=== PATIENT | female | born 1940 | race Caucasian/White ===

== ENCOUNTER 2017-02-05 12:37 | Emergency (ER) | payer MEDICARE, OTHER ==
--- NOTE | 2017-02-05 13:27 | ER Document Report ---
ED General Pain - General Chief Complaint: Back Pain Stated Complaint: BACK,LEG PAIN Time Seen by Provider: 02/05/17 13:00 Notes: 76 yo female c/o low back pain with sciatica x 40-50 years. pain more intense x several weeks. c/o pain to neck, arms, mid/low back and right hip and leg. denies fever, bowel/bladder change. pt seen by orthopedist last week for leg pain. given "a shot in my hip". pt unable to see PCM until next week. pt reports she has been on pain management but "they didn't do anything for me". TRAVEL OUTSIDE OF THE [place] IN LAST 30 DAYS: No - HPI Onset/Duration: Constant, Persistent Quality of pain: Achy, Throbbing Context: Chronic problem, General body pain Associated symptoms: denies: Fever, Chills, Sweating Exacerbated by: Movement Relieved by: Denies Similar symptoms previously: Yes Recently seen / treated by doctor: Yes - Related Data Allergies/Adverse Reactions: aspirin [Aspirin] Adverse Reaction (Verified 04/24/16 09:48) Past Medical History - General Information source: Patient - Social History Smoking Status: Former Smoker Frequency of alcohol use: None Drug Abuse: None Lives with: Alone Family History: Reviewed & Not Pertinent Patient has suicidal ideation: No Patient has homicidal ideation: No - Past Medical History Cardiac Medical History: Reports: Hx Hypertension Denies: Hx Coronary Artery Disease, Hx Heart Attack Pulmonary Medical History: Reports: Hx Pneumonia Denies: Hx Asthma, Hx Bronchitis, Hx COPD Neurological Medical History: Denies: Hx Cerebrovascular Accident, Hx Seizures Endocrine Medical History: Reports: Hx Diabetes Mellitus Type 2 Renal/ Medical History: Denies: Hx Peritoneal Dialysis GI Medical History: Reports: Hx Gastroesophageal Reflux Disease, Hx Ulcer - Bleeding ulcers, Hx Colonoscopy, Hx Endoscopy Musculoskeltal Medical History: Reports Hx Arthritis, Reports Hx Musculoskeletal Deformity, Reports Hx Musculoskeletal Trauma Traumatic Medical History: Reports: Hx Fractures - Multiple fractures Past Surgical History: Reports: Hx Hysterectomy, Hx Orthopedic Surgery - Immunizations Immunizations up to date: No Hx Diphtheria, Pertussis, Tetanus Vaccination: No Review of Systems - Review of Systems Constitutional: No symptoms reported EENT: No symptoms reported Cardiovascular: No symptoms reported Respiratory: No symptoms reported Gastrointestinal: No symptoms reported Genitourinary: No symptoms reported Female Genitourinary: No symptoms reported Musculoskeletal: See HPI Skin: No symptoms reported Hematologic/Lymphatic: No symptoms reported Neurological/Psychological: No symptoms reported Physical Exam - Vital signs Vitals: Temp Pulse Resp BP Pulse Ox 98.1 F 77 16 140/62 H 100 02/05/17 12:47 02/05/17 12:47 02/05/17 12:47 02/05/17 12:47 02/05/17 12:47 Interpretation: Normal - General General appearance: Appears well, Alert - HEENT Head: Normocephalic, Atraumatic Eyes: Normal Pupils: PERRL - Respiratory Respiratory status: No respiratory distress Chest status: Nontender Breath sounds: Normal Chest palpation: Normal - Cardiovascular Rhythm: Regular Heart sounds: Normal auscultation Murmur: No - Abdominal Inspection: Normal Distension: No distension Bowel sounds: Normal Tenderness: Nontender Organomegaly: No organomegaly - Back Back: Tender - + mid thoracic and general lumbar spinal and paraspinal tenderness. right SI tenderness - Extremities General upper extremity: Normal inspection, Nontender, Normal color, Normal ROM , Normal temperature General lower extremity: Normal inspection, Nontender, Normal color, Normal ROM , Normal temperature, Normal weight bearing. No: Clementine's sign - Neurological Neuro grossly intact: Yes Cognition: Normal Orientation: AAOx4 [place] Coma Scale Eye Opening: Spontaneous Raymond Coma Scale Verbal: Oriented [place] Coma Scale Motor: Obeys Commands Raymond Coma Scale Total: 15 Speech: Normal Motor strength normal: LUE, RUE, LLE, RLE Sensory: Normal - Psychological Associated symptoms: Normal affect, Normal mood - Skin Skin Temperature: Warm Skin Moisture: Dry Skin Color: Normal Course - Vital Signs Vital signs: Temp Pulse Resp BP Pulse Ox 98.1 F 77 16 140/62 H 100 02/05/17 12:47 02/05/17 12:47 02/05/17 12:47 02/05/17 12:47 02/05/17 12:47 Discharge - Discharge Clinical Impression: Chronic pain Qualifiers: Chronic pain type: chronic pain syndrome Qualified Code(s): G89.4 - Chronic pain syndrome Condition: Stable Disposition: HOME, SELF-CARE Instructions: Low Back Pain ([facility]), Warm Packs ([facility]), Ultram ([facility]), Muscle Relaxers ([facility]) Additional Instructions: please follow up with your primary care for further pain management Prescriptions: Methocarbamol [Robaxin 500 Mg Tablet] 1,000 mg PO Q6 #30 tablet Tramadol HCl [Ultram 50 mg Tablet] 50 mg PO ASDIR PRN #20 tablet PRN Reason: Referrals: VICKIE SAMUEL DO [Primary Care Provider] - Follow up as needed
[2017-02-05 13:30] VITALS: BP 140/62
== END 2017-02-05 13:30 | disposition home or self-care (01) ==
LOC: ER 12:37
DX: G89.4 Chronic pain syndrome (principal); M54.40 Lumbago with sciatica, unspecified side; M25.551 Pain in right hip; M79.604 Pain in right leg; M54.2 Cervicalgia; M79.603 Pain in arm, unspecified; I10 Essential (primary) hypertension; E11.9 Type 2 diabetes mellitus without complications; Z87.891 Personal history of nicotine dependence
CPT/HCPCS: 99283

== ENCOUNTER 2017-03-30 10:42 | Emergency (ER) | payer MEDICARE, OTHER ==
[2017-03-30 11:44] LABS: ABSOLUTE EOSINOPHILS # (AUTO) 0.1 10^3/uL (0.0-0.6); ABSOLUTE LYMPHOCYTES (AUTO) 1.8 10^3/uL (0.5-4.7); ABSOLUTE MONOCYTES (AUTO) 0.7 10^3/uL (0.1-1.4); ABSOLUTE NEUT (AUTO) 7.7 10^3/uL (1.7-8.2); BASOPHILS % (AUTO) 0.3 % (0-2); EOSINOPHILS % (AUTO) 1.3 % (0-6); HEMATOCRIT 37.3 % (36.0-47.0); HEMOGLOBIN 12.7 g/dL (12.0-15.5); HGB HCT DIFFERENCE 0.8; LYMPHOCYTES % (AUTO) 17.1 % (13-45); MEAN CORPUSCULAR HEMOGLOBIN 33.2 pg (27.0-33.4); MEAN CORPUSCULAR HGB CONC 34.1 g/dL (32.0-36.0); MEAN CORPUSCULAR VOLUME 97 fl (80-97); MONOCYTES % (AUTO) 6.4 % (3-13); RED BLOOD COUNT 3.83 10^6/uL (3.72-5.28); RED CELL DISTRIBUTION WIDTH 13.7 % (11.5-14.0); SEGMENTED NEUTROPHILS % (AUTO) 74.9 % (42-78); WHITE BLOOD COUNT 10.3 10^3/uL (4.0-10.5)
[2017-03-30 11:54] LABS: ALANINE AMINOTRANSFERASE 22 U/L (9-52); ALBUMIN 4.1 g/dL (3.5-5.0); ALKALINE PHOSPHATASE 97 U/L (38-126); ANION GAP 13 (5-19); ASPARTATE AMINO TRANSFERASE 13 U/L (14-36); BILIRUBIN,DIRECT 0.3 mg/dL (0.0-0.4); BILIRUBIN,TOTAL 0.3 mg/dL (0.2-1.3); BLOOD UREA NITROGEN 33 mg/dL (7-20); CALCIUM 9.4 mg/dL (8.4-10.2); CARBON DIOXIDE 24 mmol/L (22-30); CHLORIDE 103 mmol/L (98-107); CREATININE RESULT 1.01 mg/dL (0.52-1.25); GLUCOSE 172 mg/dL (75-110); POTASSIUM 5.1 mmol/L (3.6-5.0); SODIUM 139.8 mmol/L (137-145); TOTAL PROTEIN 6.8 g/dL (6.3-8.2)
--- NOTE | 2017-03-30 11:56 | ER Document Report ---
ED General - General Information source: Patient TRAVEL OUTSIDE OF THE [place] IN LAST 30 DAYS: No - HPI Associated symptoms: Other - see above <ANDREW HERNANDEZ - Last Filed: 03/30/17 11:57> <STEVO GILLESPIE - Last Filed: 03/30/17 13:00> - General Chief Complaint: General Weakness Stated Complaint: WEAKNESS,DIZZINESS Time Seen by Provider: 03/30/17 11:17 Notes: Patient is a 76 year old female who presents to the ED with complaints of coughing, sore throat, congestion, dizziness and weakness in the morning when she wakes up. Patient states once she gets moving her symptoms improve. Patient also complains of generalized body aches secondary to arthritis. Patient states her symptoms are chronic. Patient states she knows she has "something going on with my head or throat". Patient also has a headache. PCP: Dr. Graham Orthopedic: [facility] (ANDREW HERNANDEZ) - Related Data Allergies/Adverse Reactions: aspirin [Aspirin] Adverse Reaction (Verified 04/24/16 09:48) Past Medical History - General Information source: Patient - Social History Smoking Status: Never Smoker Chew tobacco use (# tins/day): No Frequency of alcohol use: None Drug Abuse: None Family History: Reviewed & Not Pertinent - Past Medical History Cardiac Medical History: Reports: Hx Hypertension Denies: Hx Coronary Artery Disease, Hx Heart Attack Pulmonary Medical History: Reports: Hx Pneumonia Denies: Hx Asthma, Hx Bronchitis, Hx COPD Neurological Medical History: Denies: Hx Cerebrovascular Accident, Hx Seizures Endocrine Medical History: Reports: Hx Diabetes Mellitus Type 2 Renal/ Medical History: Denies: Hx Peritoneal Dialysis GI Medical History: Reports: Hx Gastroesophageal Reflux Disease, Hx Ulcer - Bleeding ulcers, Hx Colonoscopy, Hx Endoscopy Musculoskeltal Medical History: Reports Hx Arthritis, Reports Hx Musculoskeletal Deformity, Reports Hx Musculoskeletal Trauma Traumatic Medical History: Reports: Hx Fractures - Multiple fractures Past Surgical History: Reports: Hx Orthopedic Surgery. Denies: Hx Hysterectomy - Immunizations Immunizations up to date: No Hx Diphtheria, Pertussis, Tetanus Vaccination: No <ANDREW HERNANDEZ - Last Filed: 03/30/17 11:57> Review of Systems - Review of Systems Constitutional: Weakness. denies: See HPI EENT: No symptoms reported, Nose congestion, Throat pain Cardiovascular: See HPI, Dizziness Respiratory: See HPI, Cough Gastrointestinal: No symptoms reported Genitourinary: No symptoms reported Female Genitourinary: No symptoms reported Musculoskeletal: No symptoms reported Skin: No symptoms reported Hematologic/Lymphatic: No symptoms reported Neurological/Psychological: See HPI, Weakness <ANDREW HERNANDEZ - Last Filed: 03/30/17 11:57> Physical Exam - General General appearance: Appears well, Alert In distress: None - HEENT Head: Normocephalic, Atraumatic Eyes: Normal Extraocular movements intact: Yes Pupils: PERRL - Respiratory Respiratory status: No respiratory distress Chest status: Tender - chest wall Breath sounds: Normal Chest palpation: Tender - chest wall - Cardiovascular Rhythm: Regular Heart sounds: Normal auscultation Murmur: No - Abdominal Inspection: Obese Distension: No distension Tenderness: Nontender - Back Back: Normal - Extremities General upper extremity: Normal inspection, Normal ROM General lower extremity: Normal ROM, Other - left lateral ankle buldging from previous injury, chronic problems and prior surgery - Neurological Neuro grossly intact: Yes - Psychological Associated symptoms: Normal affect, Normal mood - Skin Skin Temperature: Warm Skin Moisture: Dry Skin Color: Normal <ANDREW HERNANDEZ - Last Filed: 03/30/17 11:57> Course - Laboratory Result Diagrams: 03/30/17 11:17 03/30/17 11:17 <ANDREW HERNANDEZ - Last Filed: 03/30/17 11:57> - Laboratory Result Diagrams: 03/30/17 11:17 03/30/17 11:17 <STEVO GILLESPIE - Last Filed: 03/30/17 13:00> - Re-evaluation Re-evalutation: 03/30/17 12:53 This 76-year-old female patient presents emergency room with multiple chronic complaints. None of her complaints are new, recently worsened, or particularly worrisome. Her lab work including CBC, Chem-12, urinalysis is unremarkable other than evidence of dehydration with an elevated BUN and a potassium 5.1. Her BUN is double what it was 1 year ago, the last time lab work is available for review. She states she has not discussed these problems with her primary care provider. She is encouraged to follow-up with her primary care provider and address all of her concerns. She will be encouraged to increase her fluid intake. (STEVO GILLESPIE) - Vital Signs Vital signs: Temp Pulse Resp BP Pulse Ox 97.7 F 79 16 125/62 95 03/30/17 10:46 03/30/17 10:46 03/30/17 10:46 03/30/17 10:46 03/30/17 10:46 - Laboratory Laboratory results interpreted by me: 03/30/17 03/30/17 11:17 12:23 Potassium 5.1 H BUN 33 H Est GFR (Non-Af Amer) 53 L Glucose 172 H AST 13 L Urine Ascorbic Acid 40 H Discharge <ANDREW HERNANDEZ - Last Filed: 03/30/17 11:57> <STEVO GILLESPIE - Last Filed: 03/30/17 13:00> - Discharge Clinical Impression: Generalized pain, Chronic pain of left ankle, Intermittent dizziness, Weakness , Chest wall pain Condition: Stable Disposition: HOME, SELF-CARE Additional Instructions: Weakness: We did not find a definite cause for your weakness. This may require further medical tests. Weakness can be caused by infection, physical exhaustion , rapid weight loss, dehydration, or medicine side effects. Diseases of the muscles, heart, nerves, and blood vessels can make you weak. Sometimes the problem is simply depression or lack of exercise. You should get plenty of rest. Unless the doctor tells you otherwise, it's usually best to add short periods of regular mild exercise. Eat a nutritious diet with multiple small, low-sugar meals. If symptoms continue, additional medical evaluation will be necessary. Be sure to follow up as instructed. If you become very dizzy, nauseated, or feel like you're going to faint, lie down right away. Wait until the symptoms have passed before you get up again. Stand up slowly. Call the doctor or return if you develop chest pain, abdominal pain, severe headache, irregular heartbeat or very fast pulse, confusion, vision problems, fever, muscular pain, or any other new symptom. Your lab work today is unremarkable except for signs of dehydration. You should drink much more water throughout the day than what you have been doing recently. Follow-up with your primary care provider this week to review and address all of your symptoms related to sinuses, throat, dizziness, weakness, etc. RETURN TO THE EMERGENCY ROOM IF ANY NEW OR WORSENING SYMPTOMS. Referrals: VICKIE GRAHAM DO [Primary Care Provider] - Follow up in 3-5 days Scribe Attestation: 03/30/17 13:00 I personally performed the services described in the documentation, reviewed and edited the documentation which was dictated to the scribe in my presence, and it accurately records my words and actions. (STEVO GILLESPIE) Scribe Documentation - Scribe Written by Gabe:: gabe Estevez, 03/30/2017, 1203 acting as scribe for :: Souleymane <ANDREW HERNANDEZ - Last Filed: 03/30/17 11:57>
[2017-03-30 12:43] LABS: APPEARANCE,URINE CLEAR; BILIRUBIN,URINE NEGATIVE (NEGATIVE); GLUCOSE, URINE NEGATIVE (NEGATIVE); KETONES,URINE NEGATIVE (NEGATIVE); LEUKOCYTE ESTERASE,URINE NEGATIVE (NEGATIVE); NITRITE,URINE NEGATIVE (NEGATIVE); PROTEIN,URINE NEGATIVE (NEGATIVE); URINE SPECIFIC GRAVITY 1.013; UROBILINOGEN,URINE NEGATIVE mg/dL (<2.0)
[2017-03-30 13:17] VITALS: BP 121/54
== END 2017-03-30 13:17 | disposition home or self-care (01) ==
LOC: ER 10:42
DX: R52 Pain, unspecified (principal); M25.572 Pain in left ankle and joints of left foot; G89.29 Other chronic pain; R42 Dizziness and giddiness; R53.1 Weakness; R07.89 Other chest pain; R05 Cough; J02.9 Acute pharyngitis, unspecified; R09.81 Nasal congestion; R51 Headache
CPT/HCPCS: 36415; 80053; 81001; 84443; 85025; 99285

== ENCOUNTER → 2017-06-12 | Day surgery (SDC) | payer MEDICARE, OTHER ==
[~2017-06-12] MED LIST: BUPIVACAINE HCL 0.5 % INJ/PF 30 ML SDV ONE
--- NOTE | 2017-06-12 13:42 | Operative Report ---
KNEE RADIOFREQUENCY left under ultrasound guidance PROCEDURE: 1. Superolateral genicular branch from the vastus lateralis 2. Superomedial genicular branch from the vastus medialis 3. Inferomedial genicular branch from the saphenous nerve DATE OF PROCEDURE: 12 June 2017 ANESTHESIA: Local anesthesia COMPLICATIONS: None reported PROCEDURE IN DETAIL: Hx/PE/meds/allergies/applicable labs reviewed. No changes and no contraindications were found. Full description of the procedure was provided including benefits as well as possible complications including transient increased pain, stomach irritation, mood alteration, transient weakness or parasthesias as well as more serious nerve injury, bleeding, infection or allergic reaction. Informed consent was obtained and documented. The patient was brought to the procedure room and placed on the exam table in a comfortable supine position. The place for needle placement was obtained by manual palpation with ultrasound confirmation. The sterile field was prepared by chloroprep and sterile drapes. Local anesthesia superficial and deep was provided by local infiltration of 2% lidocaine. A 17g 50mm radiofrequency introducer needle with a 4 mm active tip was placed overlying the left knee joint and using fluoroscopic guidance the needle was advanced to a bony endpoint on the superiolateral portion of the femoral condyle of the left knee. A second needle was advanced to a bony endpoint on the superiomedial portion of the femoral condyle. A third needle was then placed over the inferiomedial portion of the tibial condyle until a bony endpoint was met. Attempted aspiration yielded no blood. Transverse ultrasound views showed all the needles at 50% depth of the femur and tibia. Motor stimulation was tested at 2.0 volts with no leg movement. Images were saved in AP and lateral. A mixture consisting of 0.25% bupivacaine was slowly injected. Then a radiofrequency ablation of each of the geniculate nerves were done at 80 degrees Celsius for 2 minutes and 30 seconds each. The needles were withdrawn. The patient tolerated the procedure well. After observation the patient was discharged with instructions and follow up. They were also provided contact information to call regarding any concerning symptoms or questions. IMPRESSION: 1. Successful geniculate knee radiofrequency ablation was performed. 2. The patient was given prescription of home medicines. 3. RTC in 1-2 week(s).
== END ==
LOC: RAD 11:03
PROVIDERS: ATTEND Family Medicine
DX: M17.11 Unilateral primary osteoarthritis, right knee (principal); M17.12 Unilateral primary osteoarthritis, left knee
CPT/HCPCS: 64640

== ENCOUNTER 2017-11-25 10:59 | Emergency (ER) | payer MEDICARE, OTHER ==
--- NOTE | 2017-11-25 11:26 | ER Document Report ---
ED Medical Screen (RME) - General Chief Complaint: Dizziness Stated Complaint: WEAKNESS, DIZZY, BURNING FEELING IN STOMACH Time Seen by Provider: 11/25/17 11:20 Mode of Arrival: Ambulatory Information source: Patient Notes: This is a 77-year-old female with a history of hypertension, diabetes, bleeding ulcers in the past (with transfusions) who presents to the emergency room with generalized weakness and dizziness since Friday patient states she is also experiencing some epigastric burning similar to previous bleeding ulcer in the past. TRAVEL OUTSIDE OF THE [place] IN LAST 30 DAYS: No - Related Data Allergies/Adverse Reactions: aspirin [Aspirin] Adverse Reaction (Verified 11/25/17 11:03) Past Medical History - Social History Frequency of alcohol use: None Drug Abuse: None Family history: Arthritis, CAD, DM, Hyperlipidemia, Hypertension - Past Medical History Cardiac Medical History: Reports: Hx Hypertension Denies: Hx Coronary Artery Disease, Hx Heart Attack Pulmonary Medical History: Reports: Hx Pneumonia Denies: Hx Asthma, Hx Bronchitis, Hx COPD Neurological Medical History: Denies: Hx Cerebrovascular Accident, Hx Seizures Endocrine Medical History: Reports: Hx Diabetes Mellitus Type 2 Renal/ Medical History: Denies: Hx Peritoneal Dialysis GI Medical History: Reports: Hx Gastroesophageal Reflux Disease, Hx Ulcer - Bleeding ulcers, Hx Colonoscopy, Hx Endoscopy. Denies: Hx Pancreatitis Musculoskeltal Medical History: Reports Hx Arthritis, Reports Hx Musculoskeletal Deformity, Reports Hx Musculoskeletal Trauma Traumatic Medical History: Reports: Hx Fractures - Multiple fractures Past Surgical History: Reports: Hx Orthopedic Surgery. Denies: Hx Hysterectomy - Immunizations Immunizations up to date: No Hx Diphtheria, Pertussis, Tetanus Vaccination: No Physical Exam - Vital signs Vitals: Temp Pulse Resp BP Pulse Ox 98.4 F 80 18 139/67 H 97 11/25/17 11:06 11/25/17 11:06 11/25/17 11:06 11/25/17 11:06 11/25/17 11:06 Course - Vital Signs Vital signs: Temp Pulse Resp BP Pulse Ox 98.4 F 80 18 139/67 H 97 11/25/17 11:06 11/25/17 11:06 11/25/17 11:06 11/25/17 11:06 11/25/17 11:06
[2017-11-25 11:53] LABS: ABSOLUTE EOSINOPHILS # (AUTO) 0.1 10^3/uL (0.0-0.6); ABSOLUTE LYMPHOCYTES (AUTO) 1.2 10^3/uL (0.5-4.7); ABSOLUTE MONOCYTES (AUTO) 0.5 10^3/uL (0.1-1.4); ABSOLUTE NEUT (AUTO) 6.9 10^3/uL (1.7-8.2); BASOPHILS % (AUTO) 0.2 % (0-2); EOSINOPHILS % (AUTO) 0.9 % (0-6); HEMATOCRIT 35.8 % (36.0-47.0); LYMPHOCYTES % (AUTO) 13.5 % (13-45); MEAN CORPUSCULAR HEMOGLOBIN 32.6 pg (27.0-33.4); MEAN CORPUSCULAR HGB CONC 33.5 g/dL (32.0-36.0); MEAN CORPUSCULAR VOLUME 98 fl (80-97); MONOCYTES % (AUTO) 5.3 % (3-13); PLATELET COUNT 346 10^3/uL (150-450); RED BLOOD COUNT 3.67 10^6/uL (3.72-5.28); RED CELL DISTRIBUTION WIDTH 13.9 % (11.5-14.0); SEGMENTED NEUTROPHILS % (AUTO) 80.1 % (42-78); TOTAL CELLS COUNTED % (AUTO) 100 %; WHITE BLOOD COUNT 8.6 10^3/uL (4.0-10.5)
[2017-11-25 12:04] LABS: INTERNATIONAL RATION (INR) 0.88; PROTHROMBIN TIME 12.6 SEC (11.4-15.4)
[2017-11-25 12:05] LABS: ALANINE AMINOTRANSFERASE 24 U/L (9-52); ALBUMIN 3.7 g/dL (3.5-5.0); ALKALINE PHOSPHATASE 50 U/L (38-126); ANION GAP 8 (5-19); ASPARTATE AMINO TRANSFERASE 14 U/L (14-36); BILIRUBIN,DIRECT 0.2 mg/dL (0.0-0.4); BILIRUBIN,TOTAL 0.2 mg/dL (0.2-1.3); BLOOD UREA NITROGEN 19 mg/dL (7-20); CALCIUM 9.3 mg/dL (8.4-10.2); CARBON DIOXIDE 28 mmol/L (22-30); CHLORIDE 106 mmol/L (98-107); CREATINE KINASE 26 U/L (30-135); GLUCOSE 107 mg/dL (75-110); POTASSIUM 4.5 mmol/L (3.6-5.0); SODIUM 142.1 mmol/L (137-145); TOTAL PROTEIN 5.9 g/dL (6.3-8.2)
[2017-11-25 12:16] LABS: CREATINE KINASE MB 0.28 ng/mL (<4.55)
[2017-11-25 12:18] LABS: TROPONIN I < 0.012 ng/mL
--- NOTE | 2017-11-25 12:52 | ER Document Report ---
ED General - General Chief Complaint: Dizziness Stated Complaint: WEAKNESS, DIZZY, BURNING FEELING IN STOMACH Time Seen by Provider: 11/25/17 11:20 Mode of Arrival: Ambulatory Information source: Patient Notes: 77-year-old female with past medical history as recorded including gastric ulcers who presents today stating she has discomfort to the epigastric region for "many years". She states for the last 2 days she has had some of this discomfort to this location as well as some lightheadedness and dizziness. She denies any chest pain, nausea, vomiting, shortness of breath, weakness or numbness. She states a mild intermittent frontal headache without any blurry vision or neck discomfort. She denies any dysuria or black or tarry stools. TRAVEL OUTSIDE OF THE [place] IN LAST 30 DAYS: No - HPI Onset: Other - See above Onset/Duration: Intermittent Quality of pain: Achy Severity: Mild Pain Level: 0 Associated symptoms: Other - See above Exacerbated by: Denies Relieved by: Denies Similar symptoms previously: No Recently seen / treated by doctor: No - Related Data Allergies/Adverse Reactions: aspirin [Aspirin] Adverse Reaction (Verified 11/25/17 11:03) Past Medical History - General Information source: Patient - Social History Smoking Status: Never Smoker Cigarette use (# per day): No Chew tobacco use (# tins/day): No Smoking Education Provided: No Frequency of alcohol use: None Drug Abuse: None Family History: Reviewed & Not Pertinent Patient has suicidal ideation: No Patient has homicidal ideation: No - Past Medical History Cardiac Medical History: Reports: Hx Hypertension Denies: Hx Coronary Artery Disease, Hx Heart Attack Pulmonary Medical History: Reports: Hx Pneumonia Denies: Hx Asthma, Hx Bronchitis, Hx COPD Neurological Medical History: Denies: Hx Cerebrovascular Accident, Hx Seizures Endocrine Medical History: Reports: Hx Diabetes Mellitus Type 2 Renal/ Medical History: Denies: Hx Peritoneal Dialysis GI Medical History: Reports: Hx Gastroesophageal Reflux Disease, Hx Ulcer - Bleeding ulcers, Hx Colonoscopy, Hx Endoscopy. Denies: Hx Pancreatitis Musculoskeltal Medical History: Reports Hx Arthritis, Reports Hx Musculoskeletal Deformity, Reports Hx Musculoskeletal Trauma Traumatic Medical History: Reports: Hx Fractures - Multiple fractures Past Surgical History: Reports: Hx Orthopedic Surgery. Denies: Hx Hysterectomy - Immunizations Immunizations up to date: No Hx Diphtheria, Pertussis, Tetanus Vaccination: No Review of Systems - Review of Systems Constitutional: denies: Fever EENT: denies: Eye discharge, Nose discharge Cardiovascular: denies: Chest pain, Palpitations Respiratory: denies: Short of breath Gastrointestinal: denies: Diarrhea, Vomiting Genitourinary: denies: Dysuria Musculoskeletal: denies: Leg swelling Skin: Other - no hives. denies: Rash Neurological/Psychological: Other - no slurred speech -: Yes All other systems reviewed and negative Physical Exam - Vital signs Vitals: Temp Pulse Resp BP Pulse Ox 98.4 F 80 18 139/67 H 97 11/25/17 11:06 11/25/17 11:06 11/25/17 11:06 11/25/17 11:06 11/25/17 11:06 Notes: Reviewed vital signs and nursing note as charted by RN. CONSTITUTIONAL: Alert and oriented and responds appropriately to questions. Well -appearing; well-nourished HEAD: Normocephalic; atraumatic EYES: PERRL ENT: Normal nose; no rhinorrhea; moist mucous membranes; no temporal erythema or tenderness present; pharynx without lesions noted NECK: Supple without meningismus; non-tender; no carotid bruits; no cervical lymphadenopathy, no masses CARD: Regular rate and rhythm; no murmurs RESP: Normal chest excursion without splinting or tachypnea; breath sounds clear and equal bilaterally ABD/GI: Normal bowel sounds; non-distended; soft, non-tender, no abdominal bruits or palpable masses BACK: The back appears normal and is non-tender to palpation, there is no CVA tenderness EXT: Normal ROM in all joints; non-tender to palpation; no edema SKIN: No acute lesions noted NEURO: CN II through XII are intact. Patient has 5 out of 5 bilateral upper and lower extremity strength with sensation intact to light touch with normal cerebellar examination. No nystagmus noted PSYCH: The patient's mood and manner are appropriate. Grooming and personal hygiene are appropriate. Course - Re-evaluation Re-evalutation: 11/25/17 12:51 Given the history and physical examination we will obtain basic labs, abdominal labs, cardiac labs, urinalysis, EKG, and a CT scan of the head. I have low pretest probability currently for ACS. I performed a rectal examination and see no gross blood. Hemoccult has been sent. Orthostatics are pending. EKG shows a heart of 74, normal sinus rhythm, normal axis, no obvious ST elevation or depression, mild T-wave flattening throughout. Old EKG from July 2015 shows no obvious appreciable change. Chest x-ray shows normal heart, normal mediastinum, no fractures, normal lung guy, no pneumothorax. CT scan of the head shows no acute findings. 11/25/17 14:51 Cardiac labs, hemoglobin, Hemoccult results, and chemistry as recorded. Urine analysis as recorded. Urine culture has been sent. Fluids and Rocephin have been given. Orthostatics unremarkable. Patient denies any dizziness at this time. No change in examination. Still no focal neurological deficits. Patient will be discharged home with strict return precautions and follow-up with the primary care physician pending urine culture results. - Vital Signs Vital signs: Temp Pulse Resp BP Pulse Ox 98.4 F 71 12 135/61 H 98 11/25/17 11:06 11/25/17 12:00 11/25/17 13:00 11/25/17 12:52 11/25/17 13:00 - Laboratory Result Diagrams: 11/25/17 11:40 11/25/17 11:40 Laboratory results interpreted by me: 11/25/17 11/25/17 11/25/17 11:40 11:40 12:55 RBC 3.67 L Hct 35.8 L MCV 98 H Seg Neutrophils % 80.1 H Creatine Kinase 26 L Total Protein 5.9 L Ur Leukocyte Esterase SMALL H Urine Ascorbic Acid 40 H Discharge - Discharge Clinical Impression: Dizziness, Epigastric abdominal pain UTI (urinary tract infection) Qualifiers: Urinary tract infection type: site unspecified Hematuria presence: without hematuria Qualified Code(s): N39.0 - Urinary tract infection, site not specified Condition: Good Disposition: HOME, SELF-CARE Additional Instructions: Come back immediately for any return of lightheadedness or dizziness, increased pain or change in location or quality of pain, fevers or vomiting, chest pain, or any other acute problems. Please take the antibiotics as prescribed and please follow-up with the primary care physician for reassessment as we have discussed. Prescriptions: Cephalexin Monohydrate [Keflex 500 mg Capsule] 500 mg PO Q6H 10 Days #40 capsule Referrals: VICKIE SAMUEL DO [Primary Care Provider] - Follow up as needed
--- NOTE | 2017-11-25 12:55 | RADIOLOGY REPORT (SQ) ---
EXAM DESCRIPTION: CHEST SINGLE VIEW COMPLETED DATE/TIME: 11/25/2017 12:25 pm REASON FOR STUDY: weakness, epigastric pain COMPARISON: March 2016 EXAM PARAMETERS: NUMBER OF VIEWS: One view. TECHNIQUE: Single frontal radiographic view of the chest acquired. RADIATION DOSE: NA LIMITATIONS: None. FINDINGS: LUNGS AND PLEURA: No opacities, masses or pneumothorax. No pleural effusion. MEDIASTINUM AND HILAR STRUCTURES: No masses. Contour normal. HEART AND VASCULAR STRUCTURES: Heart normal in size. Normal vasculature. BONES: No acute findings. HARDWARE: None in the chest. OTHER: No other significant finding. IMPRESSION: NO ACUTE RADIOGRAPHIC FINDING IN THE CHEST. TECHNICAL DOCUMENTATION: JOB ID: [id number] [employer]- All Rights Reserved Reading location - IP/workstation name: [email or web address]
[2017-11-25 13:27] LABS: APPEARANCE,URINE SLIGHTLY-CLOUDY; BILIRUBIN,URINE NEGATIVE (NEGATIVE); COLOR,URINE YELLOW; GLUCOSE, URINE NEGATIVE (NEGATIVE); KETONES,URINE NEGATIVE (NEGATIVE); LEUKOCYTE ESTERASE,URINE SMALL (NEGATIVE); NITRITE,URINE NEGATIVE (NEGATIVE); PROTEIN,URINE NEGATIVE (NEGATIVE); UROBILINOGEN,URINE NEGATIVE mg/dL (<2.0)
--- NOTE | 2017-11-25 14:41 | RADIOLOGY REPORT (SQ) ---
EXAM DESCRIPTION: CT HEAD WITHOUT COMPLETED DATE/TIME: 11/25/2017 2:22 pm REASON FOR STUDY: 16, dizziness COMPARISON: March 2009 TECHNIQUE: Axial images acquired through the brain without intravenous contrast. Images reviewed wi th bone, brain and subdural windows. All Images stored on PACS. All CT scanners at this facility use dose modulation, iterative reconstruction, and/or weight based d osing when appropriate to reduce radiation dose to as low as reasonably achievable (ALARA). [facility]: Dose Right [facility]: CareDose [facility]: Dose Right [facility]: Teradose 4D [facility]: Smart [employer] RADIATION DOSE: CT Rad equipment meets quality standard of care and radiation dose reduction techniq ues were employed. CTDIvol: 64.6 mGy. DLP: 1163 mGy-cm. mGy. LIMITATIONS: None. FINDINGS: VENTRICLES: Prominent. CEREBRUM: No masses. No hemorrhage. No midline shift. Areas of low density in the white matter mos t likely due to chronic micro-vascular ischemic change. No evidence for acute infarction. CEREBELLUM: No masses. No hemorrhage. No alteration of density. No evidence for acute infarction. EXTRAAXIAL SPACES: Mild age-related involutional change. No fluid collections. No masses. ORBITS AND GLOBE: No intra- or extraconal masses. Normal contour of globe without masses. CALVARIUM: No fracture. PARANASAL SINUSES: No fluid or mucosal thickening. SOFT TISSUES: No mass or hematoma. OTHER: No other significant finding. IMPRESSION: MILD CHRONIC CHANGES OF ATROPHY AND MICROVASCULAR ISCHEMIA. NO ACUTE PROCESS. EVIDENCE OF ACUTE STROKE: NO. TECHNICAL DOCUMENTATION: JOB ID: [id number] Quality ID # [id number]: Final reports with documentation of one or more dose reduction techniques (e.g., Au tomated exposure control, adjustment of the mA and/or kV according to patient size, use of iterative reconstruction technique) 2010 [employer]- All Rights Reserved Reading location - IP/workstation name: [email or web address]
[2017-11-25] MEDS ORDERED: CEFTRIAXONE RTU 1 GM/D5W 50 ML IV ONE (14:50)
[2017-11-25] MEDS ORDERED: NORMAL SALINE 1000 ML 1,000 ML IV ONE (14:53)
[2017-11-25] MEDS ORDERED: CEFTRIAXONE INJ 1000 MG VIAL IV ONE (15:15)
--- NOTE | 2017-11-25 15:47 | EKG REPORT ---
SEVERITY:- BORDERLINE ECG - SINUS RHYTHM ATRIAL PREMATURE COMPLEX BORDERLINE T ABNORMALITIES, ANT-LAT LEADS : Confirmed by: Estelle Lomas 25-Nov-2017 15:47:08
[2017-11-25 16:20] VITALS: BP 142/64
== END 2017-11-25 16:22 | disposition home or self-care (01) ==
LOC: ER 10:59
DX: N39.0 Urinary tract infection, site not specified (principal); R42 Dizziness and giddiness; R10.13 Epigastric pain; R51 Headache; I10 Essential (primary) hypertension; E11.9 Type 2 diabetes mellitus without complications; Z87.11 Personal history of peptic ulcer disease; Z87.19 Personal history of other diseases of the digestive system
CPT/HCPCS: 93005; 99285; 96361; 96374; 36415; 82553; 82550; 85025; 85610; 82272; 80053; 81001; 84484; 71045; 70450; 93010; J0696; J7030

== ENCOUNTER → 2018-02-04 | Outpatient (CLI) | payer MEDICARE, OTHER ==
--- NOTE | 2018-02-04 16:59 | RADIOLOGY REPORT (SQ) ---
EXAM DESCRIPTION: U/S NON-OB PELVIS W/O DOP; U/S NON-OB PELVIS TV W/O DOP COMPLETED DATE/TIME: 02/04/2018 4:50 pm REASON FOR STUDY: OTHER PELVIC MASS R19.09 OTHER INTRA-ABDOMINAL AND PELVIC SWELLING, MASS AND L COMPARISON: None. TECHNIQUE: Dynamic and static grayscale images acquired of the pelvis via transabdominal and transva ginal approach and recorded on PACS. Additional selected color Doppler and spectral images recorded. LIMITATIONS: None. FINDINGS: UTERUS: Not visualized RIGHT OVARY AND DOPPLER: Ovary not visualized. LEFT OVARY AND DOPPLER: Ovary not visualized. FREE FLUID: None noted. OTHER: No pelvic mass noted. IMPRESSION: No normal structures or abnormal masses identified. TECHNICAL DOCUMENTATION: JOB ID: [id number] [employer]- All Rights Reserved Rev-01/23 Reading location - IP/workstation name: [email or web address]
--- NOTE | 2018-02-04 16:59 | RADIOLOGY REPORT (SQ) ---
EXAM DESCRIPTION: U/S NON-OB PELVIS W/O DOP; U/S NON-OB PELVIS TV W/O DOP COMPLETED DATE/TIME: 02/04/2018 4:50 pm REASON FOR STUDY: OTHER PELVIC MASS R19.09 OTHER INTRA-ABDOMINAL AND PELVIC SWELLING, MASS AND L COMPARISON: None. TECHNIQUE: Dynamic and static grayscale images acquired of the pelvis via transabdominal and transva ginal approach and recorded on PACS. Additional selected color Doppler and spectral images recorded. LIMITATIONS: None. FINDINGS: UTERUS: Not visualized RIGHT OVARY AND DOPPLER: Ovary not visualized. LEFT OVARY AND DOPPLER: Ovary not visualized. FREE FLUID: None noted. OTHER: No pelvic mass noted. IMPRESSION: No normal structures or abnormal masses identified. TECHNICAL DOCUMENTATION: JOB ID: [id number] [employer]- All Rights Reserved Rev-01/23 Reading location - IP/workstation name: [email or web address]
== END ==
LOC: RAD 15:45
PROVIDERS: ATTEND Family Medicine
DX: R19.09 Other intra-abdominal and pelvic swelling, mass and lump (principal)
CPT/HCPCS: 76830; 76856

== ENCOUNTER → 2018-02-23 | Outpatient (CLI) | payer MEDICARE ==
--- NOTE | 2018-02-23 13:33 | RADIOLOGY REPORT (SQ) ---
EXAM DESCRIPTION: NM GASTRIC EMPTYING STUDY COMPLETED DATE/TIME: 02/23/2018 12:37 pm REASON FOR STUDY: NON INTRACTABLE VOMITING W/ NAUSEA, UNSPEC VOMITING TYPE R11.2 NAUSEA WITH VOMITI NG, UNSPECIFIED COMPARISON: None. RADIONUCLIDE AND DOSE: 2.1 millicuries Tc-99m Sulfur Colloid. A wide variety of solid foods have been used. The route of agent administration: Oral. TECHNIQUE: 1 minute serial static imaging performed at time of meal, 1 hour, 2 hours, 3 hours, and 4 hours as needed. Once stomach reaches 90% emptying, the test is complete. Image intensity values plo tted with respect to time with linear regression algorithm. LIMITATIONS: None. FINDINGS: Patient was observed for 4 hours. Immediate post meal serves as baseline. Gastric emptying at 60 minutes was 26%. Gastric emptying at 90 minutes was 39%. Gastric emptying at 120 minutes was 52% Gastric emptying at 180 minutes was 75% Gastric emptying at 240 minutes was 100%. IMPRESSION: Decreased gastric emptying. TECHNICAL DOCUMENTATION: JOB ID: [id number] [employer]- All Rights Reserved Reading location - IP/workstation name: [email or web address]
== END ==
LOC: RAD 07:53
PROVIDERS: ATTEND Family Medicine
DX: R11.2 Nausea with vomiting, unspecified (principal)
CPT/HCPCS: 78264; A9541

== ENCOUNTER → 2018-02-24 | Outpatient (CLI) | payer MEDICARE ==
--- NOTE | 2018-02-24 09:18 | RADIOLOGY REPORT (SQ) ---
EXAM DESCRIPTION: CT ABD/PELVIS COMBO COMPLETED DATE/TIME: 02/24/2018 8:53 am REASON FOR STUDY: PELVIC MASS IN FEMALE R19.00 INTRA-ABD AND PELVIC SWELLING, MASS AND LUMP, UNSP S I COMPARISON: CT abdomen pelvis 04/19/2015, 04/30/2007 TECHNIQUE: CT scan of the abdomen and pelvis performed with and without intravenous contrast, and wi thout oral contrast. Contrasted imaging performed helical scanning technique and dynamic intravenous contrast injection. Images reviewed with lung, soft tissue, and bone windows. Reconstructed coronal a nd sagittal MPR images reviewed. Delayed images for evaluation of the urinary system also acquired. A ll images stored on PACS. All CT scanners at this facility use dose modulation, iterative reconstruction, and/or weight based d osing when appropriate to reduce radiation dose to as low as reasonably achievable (ALARA). [facility]: Dose Right [facility]: CareDose [facility]: Dose Right [facility]: Teradose 4D [facility]: [employer] CONTRAST TYPE AND DOSE: contrast/concentration: Isovue 370.00 mg/ml; Total Contrast Delivered: 93.0 ml; Total Saline Delivered: 71.0 ml RENAL FUNCTION: Creatinine 0.75 RADIATION DOSE: CT Rad equipment meets quality standard of care and radiation dose reduction techniq ues were employed. CTDIvol: 12.1 - 13.5 mGy. DLP: 2003 mGy-cm. . LIMITATIONS: None. FINDINGS: NON-CONTRASTED IMAGING: No urinary stones. In the right pelvic cul-de-sac, a very densely calcified/ossified nodule is present, 3.8 x 3.1 x 2 cm in size. This is unchanged from CT abdomen p jose luis 04/19/2015 and 04/30/2007, and likely represents a pedunculated calcified fibroid or, densely angelina cified/ossified right ovary. POST-CONTRASTED IMAGING: LOWER CHEST: No significant findings. No nodules or infiltrates. LIVER: Normal size. Benign 2 cm diameter hemangioma left lobe liver, unchanged from 2006. No dilate d ducts. SPLEEN: Normal size. No focal lesions. PANCREAS: No masses. No significant calcifications. No adjacent inflammation or peripancreatic fluid collections. Pancreatic duct not dilated. GALLBLADDER: No identified stones by CT criteria. No inflammatory changes to suggest cholecystitis. ADRENAL GLANDS: No significant masses or asymmetry. RIGHT KIDNEY AND URETER: No solid masses. No significant calcifications. No hydronephrosis or hyd roureter. LEFT KIDNEY AND URETER: No solid masses. No significant calcifications. No hydronephrosis or hydr oureter. AORTA AND VESSELS: No aneurysm. No dissection. Renal arteries, SMA, celiac without stenosis. RETROPERITONEUM: No retroperitoneal adenopathy, hemorrhage or masses. BOWEL AND PERITONEAL CAVITY: No masses or inflammatory changes. No free fluid or peritoneal masses. APPENDIX: Normal. PELVIS: Densely calcified/ossified nodule in the right pelvic cul-de-sac, 3.8 x 3.1 x 2 cm in size un changed from 2006. This either represents a calcified pedunculated fibroid or densely calcified righ t ovary (question remote prior torsion). Normal size uterus and left ovary. No free pelvic fluid. No pelvic adenopathy. ABDOMINAL WALL: No masses. No hernias. BONES: No significant or acute findings. OTHER: No other significant finding. IMPRESSION: Calcified probable pedunculated fibroid in the right pelvic cul-de-sac unchanged from 27 03 TECHNICAL DOCUMENTATION: JOB ID: [id number] Quality ID # 436: Final reports with documentation of one or more dose reduction techniques (e.g., Au tomated exposure control, adjustment of the mA and/or kV according to patient size, use of iterative reconstruction technique) 2010 [employer]- All Rights Reserved Reading location - IP/workstation name: [email or web address]
== END ==
LOC: RAD 08:32
PROVIDERS: ATTEND Family Medicine
DX: R19.00 Intra-abdominal and pelvic swelling, mass and lump, unspecified site (principal)
CPT/HCPCS: 74178

== ENCOUNTER 2018-03-31 12:46 | Day surgery (SDC) | payer MEDICARE ==
[~2018-03-31 12:46] MED LIST changes: -BUPIVACAINE HCL 0.5 % INJ/PF 30 ML SDV ONE; +DIPHENHYDRAMINE HCL 50 MG/ML VIAL ONE; +EPINEPHRINE INJ 1 MG/10 ML DISP.SYRIN ONE; +FENTANYL CITRATE INJ/PF 100 MCG/2 ML AMPUL ONE; +FLUMAZENIL INJ 0.5 MG/5 ML VIAL ONE; +GLUCAGON,HUMAN RECOMB 1 MG INJ ONE; +NALOXONE HCL INJ/PF 0.4 MG/1 ML SDV ONE
[2018-03-31] MEDS: MIDAZOLAM 2 MG/2 ML INJ ONE ×2 (13:25→13:29)
--- NOTE | 2018-03-31 13:38 | Operative Report ---
Operative Report DATE OF SURGERY: 03/31/18 Operative Report: The risks benefits and alternatives of the procedure explained to the patient in detail and informed consent is obtained.A GIF Olympus video scope was inserted into the patient's mouth and hypopharynx, the esophagus is identified intubated and insufflated, the scope was then advanced through the esophagus stomach and duodenum, retroflexion maneuver is done, the esophagus stomach and first and second portions of the duodenum examined PREOPERATIVE DIAGNOSIS: Nausea vomiting, gastroparesis POSTOPERATIVE DIAGNOSIS: Gastroparesis. Gastritis status post biopsy. Submucosal injection of Botox OPERATION: EGD with submucosal injection. EGD with biopsy SURGEON: KT CURRAN ANESTHESIA: Moderate Sedation - 3 mg of Versed, 25 mcg of fentanyl. Conscious sedation monitoring time 30 minutes. TISSUE REMOVED OR ALTERED: As noted above. COMPLICATIONS: None. ESTIMATED BLOOD LOSS: None. INTRAOPERATIVE FINDINGS: As noted above. PROCEDURE: Patient tolerated the procedure well. No immediate postprocedure complications are noted. Patient discharged in good condition. Discharge date 03/31/2018. Discharge diet: Regular. Discharge activity: Regular. 2-3 week follow-up to discuss findings. Patient is instructed to call the office or proceed to the emergency room should there be any further problems or questions. We will wait on the pathology.
[2018-03-31] MEDS ORDERED: ONABOTULINUMTOXINA INJ/PF 100 UNIT SDV IJ ONE (13:45)
[2018-03-31 14:47] VITALS: BP 137/66
== END 2018-03-31 14:40 | disposition home or self-care (01) ==
LOC: END 12:46
PROVIDERS: ATTEND Internal Medicine Gastroenterology
DX: K31.84 Gastroparesis (principal); K29.70 Gastritis, unspecified, without bleeding; K44.9 Diaphragmatic hernia without obstruction or gangrene; E11.9 Type 2 diabetes mellitus without complications; I10 Essential (primary) hypertension; D64.9 Anemia, unspecified; M19.91 Primary osteoarthritis, unspecified site; Z79.4 Long term (current) use of insulin
CPT/HCPCS: 43236; 43239; 82962; 88305 ×2; J2250; J3010; J0585; J0171; J1200; J1610; J2310; J3490

== ENCOUNTER → 2018-06-01 | Day surgery (SDC) | payer MEDICARE, OTHER ==
[~2018-06-01] MED LIST changes: +BETAMET ACET/BETAMET NA INJ 6 MG/1 ML INJ PRN; +BUPIVACAINE HCL 0.5 % INJ/PF 30 ML SDV ONE; -DIPHENHYDRAMINE HCL 50 MG/ML VIAL ONE; -EPINEPHRINE INJ 1 MG/10 ML DISP.SYRIN ONE; -FENTANYL CITRATE INJ/PF 100 MCG/2 ML AMPUL ONE; -FLUMAZENIL INJ 0.5 MG/5 ML VIAL ONE; -GLUCAGON,HUMAN RECOMB 1 MG INJ ONE; -NALOXONE HCL INJ/PF 0.4 MG/1 ML SDV ONE
--- NOTE | 2018-06-01 16:51 | RADIOLOGY REPORT (SQ) ---
EXAM DESCRIPTION: INJ W/O EPI/SUBARACH L/S SPINE COMPLETED DATE/TIME: 06/01/2018 2:35 pm REASON FOR STUDY: LUMBAR RADICULOPATHY (M54.16) M54.16 RADICULOPATHY, LUMBAR REGION COMPARISON: CT abdomen pelvis 02/24/2018 FLUOROSCOPY TIME: 1.2 minutes 4 digital radiographic images saved to PACS. TECHNIQUE: Intra-operative images acquired during surgical procedure to evaluate progress. NUMBER OF IMAGES: 4 digital radiographic images LIMITATIONS: None. FINDINGS: Clinical history: Chronic low back pain with bilateral leg pain radiating into the thighs , exacerbated by walking. This is the 1st epidural injection in a potential series of 3 injections, 3 weeks apart Procedure: Risks and benefits of the procedure were discussed with the patient and written informed consent was obtained. Fluoroscopy was used to localize approach for lumbar epidural steroid injection at the right paracent ral L3-4 level. After sterile skin prep with ChloraPrep, local anesthesia with 3 mL of 1% lidocaine, a 22 gauge spina l needle was used to access the lumbar epidural space via right paracentral approach at L3-4. Epidur al needle tip placement was confirmed by injection of 0.5 mL of Omnipaque 300. At this point, 6 mg o f Celestone and 4 mL of dilute bupivicaine was injected into the epidural space without immediate com plication. Patient's preprocedure pain level was 8 out of 10. Patient's postprocedure pain level was 2 out of 10. IMPRESSION: Lumbar epidural steroid injection as above. This is the 1st injection of a potential se irais of 3 injections for low back pain and bilateral leg pain COMMENT: Quality ID 145: Final reports for procedures using fluoroscopy that document radiation exp osure indices, or exposure time and number of fluorographic images (if radiation exposure indices are not available) Please consult full operative report of the attending physician for description of the procedure. TECHNICAL DOCUMENTATION: JOB ID: [id number] [employer]- All Rights Reserved Reading location - IP/workstation name: [email or web address]
== END ==
LOC: RAD 12:36
PROVIDERS: ATTEND Physician Assistant
DX: M54.16 Radiculopathy, lumbar region (principal)
CPT/HCPCS: 62321; J3490; J0702

== ENCOUNTER 2018-06-15 08:32 | Emergency (ER) | payer MEDICARE, OTHER ==
[2018-06-15] MEDS ORDERED: MAG HYDROX/AL HYDROX/SIMETH SUSP 30 ML UDCUP PO ONE (09:52)
[2018-06-15] MEDS ORDERED: LIDOCAINE 2% VISCOUS SOLN 20 ML UDCUP PO ONE (09:52)
[2018-06-15] MEDS ORDERED: METOCLOPRAMIDE HCL ORAL SOLN 10 MG/10 ML UDCUP PO ONE (09:52)
--- NOTE | 2018-06-15 09:52 | ER Document Report ---
ED General - General Chief Complaint: Leg Pain Stated Complaint: LEG PAIN/SWELLING Time Seen by Provider: 06/15/18 08:55 TRAVEL OUTSIDE OF THE [place] IN LAST 30 DAYS: No - HPI Patient complains to provider of: Fatigue Onset: Other - 77-year-old female with a history of diabetes as well as hypertension who presents for evaluation of diffuse myalgias as well as generalized fatigue over last few days after having exert herself moving things around the house more than usual over the last couple of days. She notes that she has not had any fevers, she denies any chills, she has not had dysuria, she has not had any abdominal pain, diarrhea, constipation, chest tightness or chest pain, she does endorse muscle aches in the back some of the shoulders a little lightheadedness. - Related Data Allergies/Adverse Reactions: aspirin [Aspirin] Adverse Reaction (Verified 03/31/18 12:50) Upset stomach, "it messes with my ulcer" Past Medical History - General Information source: Patient - Social History Smoking Status: Never Smoker Chew tobacco use (# tins/day): No Frequency of alcohol use: None Drug Abuse: None Family History: Reviewed & Not Pertinent Patient has suicidal ideation: No Patient has homicidal ideation: No - Past Medical History Cardiac Medical History: Reports: Hx Hypertension Denies: Hx Coronary Artery Disease, Hx Heart Attack Pulmonary Medical History: Reports: Hx Pneumonia Denies: Hx Asthma, Hx Bronchitis, Hx COPD Neurological Medical History: Denies: Hx Cerebrovascular Accident, Hx Seizures Endocrine Medical History: Reports: Hx Diabetes Mellitus Type 2 Renal/ Medical History: Denies: Hx Peritoneal Dialysis GI Medical History: Reports: Hx Gastroesophageal Reflux Disease, Hx Ulcer - Bleeding ulcers, Hx Colonoscopy, Hx Endoscopy. Denies: Hx Pancreatitis Musculoskeletal Medical History: Reports Hx Arthritis - "all over", "mostly in lower back" , Reports Hx Musculoskeletal Deformity, Reports Hx Musculoskeletal Trauma Traumatic Medical History: Reports: Hx Fractures - Multiple fractures Past Surgical History: Reports: Hx Orthopedic Surgery. Denies: Hx Hysterectomy - Immunizations Immunizations up to date: No Hx Diphtheria, Pertussis, Tetanus Vaccination: No Review of Systems - Review of Systems -: Yes All other systems reviewed and negative Physical Exam - Vital signs Vitals: Temp Pulse Resp BP Pulse Ox 98.0 F 85 14 149/70 H 98 06/15/18 08:38 06/15/18 08:38 10 08:38 10 08:38 10 08:38 - General General appearance: Appears well In distress: None - HEENT Head: Normocephalic Eyes: Normal Conjunctiva: Normal Cornea: Normal Extraocular movements intact: Yes Eyelashes: Normal Pupils: PERRL - Respiratory Respiratory status: No respiratory distress Chest status: Nontender Breath sounds: Normal Chest palpation: Normal - Cardiovascular Rhythm: Regular Heart sounds: Normal auscultation Murmur: No - Abdominal Inspection: Normal Distension: No distension Tenderness: Nontender Organomegaly: No organomegaly - Back Back: Normal - Extremities General upper extremity: Normal inspection, Nontender, Normal ROM, Normal strength General lower extremity: Normal inspection, Nontender, Normal ROM, Normal strength - Neurological Neuro grossly intact: Yes Cognition: Normal Orientation: AAOx4 [place] Coma Scale Eye Opening: Spontaneous [place] Coma Scale Verbal: Oriented [place] Coma Scale Motor: Obeys Commands [place] Coma Scale Total: 15 Speech: Normal Cranial nerves: Normal Cerebellar coordination: Normal Motor strength normal: LUE, RUE, LLE, RLE - Psychological Associated symptoms: Normal affect Course - Re-evaluation Re-evalutation: 06/15/18 16:38 77-year-old woman who presents with a vague constellation of complaints most prominently being fatigue and muscle aches after having exerted herself more than usual over the last couple of days. We will plan for broad evaluation including urinalysis chemistry count chest x- ray EKG. We will administer GI cocktail as she has had issues with ulcers and gastritis in the past. Unremarkable chemistry and count. Urinalysis is nondiagnostic. Patient symptoms slightly improved. States that she feels reassured, she like to go home at this time. We will plan for this patient undergo discharge with return precautions and encouraged follow-up with her primary physician's office. Do not believe this represents more serious underlying cause such as but not limited to sepsis, [place], or other intestinal catastrophe. - Vital Signs Vital signs: Temp Pulse Resp BP Pulse Ox 98.0 F 85 10 L 134/57 H 100 06/15/18 08:38 1018 08:38 06/15/18 12:01 06/15/18 12:01 06/15/18 12:01 - Laboratory Result Diagrams: 06/15/18 10:00 06/15/18 10:00 Laboratory results interpreted by me: 06/15/18 06/15/18 06/15/18 10:00 10:00 13:00 RBC 3.62 L Hct 35.9 L MCV 99 H MCH 33.5 H Glucose 68 L Urine Ketones 25 H Discharge - Discharge Clinical Impression: Muscle ache Fatigue Qualifiers: Fatigue type: unspecified Qualified Code(s): R53.83 - Other fatigue Condition: Good Disposition: HOME, SELF-CARE Instructions: Muscle Strain ([facility]), Acetaminophen Additional Instructions: You were seen today in the emergency department for your fatigue. You should continue to monitor yourself for any worsening symptoms Return for any worsening fevers, chills, abdominal pain, inability to eat or drink or keep food down. Referrals: VICKIE SAMUEL, [Primary Care Provider] - Follow up as needed
[2018-06-15 10:28] LABS: ABSOLUTE EOSINOPHILS # (AUTO) 0.1 10^3/uL (0.0-0.6); ABSOLUTE LYMPHOCYTES (AUTO) 1.1 10^3/uL (0.5-4.7); ABSOLUTE MONOCYTES (AUTO) 0.6 10^3/uL (0.1-1.4); ABSOLUTE NEUT (AUTO) 5.9 10^3/uL (1.7-8.2); BASOPHILS % (AUTO) 0.3 % (0-2); EOSINOPHILS % (AUTO) 1.1 % (0-6); HEMATOCRIT 35.9 % (36.0-47.0); HEMOGLOBIN 12.1 g/dL (12.0-15.5); LYMPHOCYTES % (AUTO) 13.8 % (13-45); MEAN CORPUSCULAR HEMOGLOBIN 33.5 pg (27.0-33.4); MEAN CORPUSCULAR HGB CONC 33.8 g/dL (32.0-36.0); MEAN CORPUSCULAR VOLUME 99 fl (80-97); MONOCYTES % (AUTO) 8.1 % (3-13); PLATELET COUNT 428 10^3/uL (150-450); RED BLOOD COUNT 3.62 10^6/uL (3.72-5.28); RED CELL DISTRIBUTION WIDTH 12.6 % (11.5-14.0); SEGMENTED NEUTROPHILS % (AUTO) 76.7 % (42-78); TOTAL CELLS COUNTED % (AUTO) 100 %; WHITE BLOOD COUNT 7.7 10^3/uL (4.0-10.5)
[2018-06-15 10:45] LABS: ALANINE AMINOTRANSFERASE 38 U/L (9-52); ALBUMIN 4.1 g/dL (3.5-5.0); ALKALINE PHOSPHATASE 66 U/L (38-126); ANION GAP 10 (5-19); ASPARTATE AMINO TRANSFERASE 33 U/L (14-36); BILIRUBIN,DIRECT 0.2 mg/dL (0.0-0.4); BILIRUBIN,TOTAL 0.4 mg/dL (0.2-1.3); BLOOD UREA NITROGEN 18 mg/dL (7-20); CALCIUM 9.3 mg/dL (8.4-10.2); CARBON DIOXIDE 27 mmol/L (22-30); CHLORIDE 105 mmol/L (98-107); CREATINE KINASE 37 U/L (30-135); GLUCOSE 68 mg/dL (75-110); LIPASE 34.9 U/L (23-300); POTASSIUM 4.4 mmol/L (3.6-5.0); SODIUM 141.8 mmol/L (137-145); TOTAL PROTEIN 6.9 g/dL (6.3-8.2)
--- NOTE | 2018-06-15 10:55 | RADIOLOGY REPORT (SQ) ---
EXAM DESCRIPTION: CHEST SINGLE VIEW COMPLETED DATE/TIME: 06/15/2018 10:46 am REASON FOR STUDY: weakness and fatigue COMPARISON: AP chest 11/25/2017 EXAM PARAMETERS: NUMBER OF VIEWS: One view. TECHNIQUE: Single frontal radiographic view of the chest acquired. RADIATION DOSE: NA LIMITATIONS: None. FINDINGS: LUNGS AND PLEURA: No opacities, masses or pneumothorax. No pleural effusion. MEDIASTINUM AND HILAR STRUCTURES: No masses. Contour normal. HEART AND VASCULAR STRUCTURES: Heart normal in size. Normal vasculature. BONES: Old healed right lateral 6th rib fracture HARDWARE: None in the chest. OTHER: No other significant finding. IMPRESSION: NO ACUTE RADIOGRAPHIC FINDING IN THE CHEST. TECHNICAL DOCUMENTATION: JOB ID: [id number] [employer]- All Rights Reserved Reading location - IP/workstation name: [facility][email or web address]
[2018-06-15 10:56] LABS: NT PRO BNP 90 pg/mL (<450)
[2018-06-15 10:58] LABS: TROPONIN I < 0.012 ng/mL
[2018-06-15 13:46] LABS: APPEARANCE,URINE CLEAR; BILIRUBIN,URINE NEGATIVE (NEGATIVE); COLOR,URINE STRAW; GLUCOSE, URINE NEGATIVE (NEGATIVE); KETONES,URINE 25 mg/dL (NEGATIVE); LEUKOCYTE ESTERASE,URINE NEGATIVE (NEGATIVE); NITRITE,URINE NEGATIVE (NEGATIVE); PROTEIN,URINE NEGATIVE (NEGATIVE); UROBILINOGEN,URINE NEGATIVE mg/dL (<2.0)
[2018-06-15 13:47] LABS: URINE SPECIFIC GRAVITY 1.007
[2018-06-15 15:06] VITALS: BP 135/63
== END 2018-06-15 15:07 | disposition home or self-care (01) ==
LOC: ER 08:32
DX: M79.18 Myalgia, other site (principal); R53.83 Other fatigue; E11.9 Type 2 diabetes mellitus without complications; I10 Essential (primary) hypertension; R42 Dizziness and giddiness; Z87.19 Personal history of other diseases of the digestive system
CPT/HCPCS: 99284; 36415; 87086; 82550; 83690; 85025; 82272; 80053; 81001; 84484; 83880; 71045; J3490; A9270

== ENCOUNTER 2018-06-17 10:06 | Emergency (ER) | payer MEDICARE, OTHER ==
--- NOTE | 2018-06-17 10:51 | ER Document Report ---
ED Medical Screen (RME) - General Chief Complaint: Dizziness Stated Complaint: DIZZINESS Time Seen by Provider: 06/17/18 10:48 TRAVEL OUTSIDE OF THE [place] IN LAST 30 DAYS: No - HPI Patient complains to provider of: weakness Onset: Other - This 77-year-old female presents for evaluation of generalized weakness and fatigue as well as a sensation of some discomfort radiating from the center of her body. She denies any obvious systemic signs of infection but feels generally unwell. She is difficulty brushing her hair getting up walking and has pain and aching in her muscles. - Related Data Allergies/Adverse Reactions: aspirin [Aspirin] Adverse Reaction (Verified 06/17/18 10:08) Upset stomach, "it messes with my ulcer" Past Medical History - Social History Chew tobacco use (# tins/day): No Frequency of alcohol use: None Drug Abuse: None Family history: Arthritis, CAD, DM, Hyperlipidemia, Hypertension - Past Medical History Cardiac Medical History: Reports: Hx Hypertension Denies: Hx Coronary Artery Disease, Hx Heart Attack Pulmonary Medical History: Reports: Hx Pneumonia Denies: Hx Asthma, Hx Bronchitis, Hx COPD Neurological Medical History: Denies: Hx Cerebrovascular Accident, Hx Seizures Endocrine Medical History: Reports: Hx Diabetes Mellitus Type 2 Renal/ Medical History: Denies: Hx Peritoneal Dialysis GI Medical History: Reports: Hx Gastroesophageal Reflux Disease, Hx Ulcer - Bleeding ulcers, Hx Colonoscopy, Hx Endoscopy. Denies: Hx Pancreatitis Musculoskeltal Medical History: Reports Hx Arthritis - "all over", "mostly in lower back" , Reports Hx Musculoskeletal Deformity, Reports Hx Musculoskeletal Trauma Traumatic Medical History: Reports: Hx Fractures - Multiple fractures Past Surgical History: Reports: Hx Orthopedic Surgery - left wrist. Denies: Hx Hysterectomy - Immunizations Immunizations up to date: No Hx Diphtheria, Pertussis, Tetanus Vaccination: No Influenza Administration Date for 06/2017 - 11/2017 Season: 09/08/17 Physical Exam - Vital signs Vitals: Temp Pulse Resp BP Pulse Ox 98.5 F 75 16 127/63 H 98 06/17/18 10:13 06/17/18 10:13 06/17/18 10:13 06/17/18 10:13 06/17/18 10:13 Course - Re-evaluation Re-evalutation: 06/17/18 10:50 I performed a rapid medical screening examination on this patient, believe she will require some further investigation and evaluation will defer further testing or disposition determination to another provider. This patient represents a broad differential, she may have a myositis, some other underlying problem. We will initiate broad workup including urinalysis chemistries counts CK. - Vital Signs Vital signs: Temp Pulse Resp BP Pulse Ox 98.5 F 75 16 127/63 H 98 06/17/18 10:13 06/17/18 10:13 06/17/18 10:13 06/17/18 10:13 06/17/18 10:13 Doctor's Discharge - Discharge Referrals: VICKIE SAMUEL DO [Primary Care Provider] - Follow up as needed
[2018-06-17 11:48] LABS: APPEARANCE,URINE HAZY; BILIRUBIN,URINE NEGATIVE (NEGATIVE); COLOR,URINE YELLOW; GLUCOSE, URINE NEGATIVE (NEGATIVE); KETONES,URINE NEGATIVE (NEGATIVE); LEUKOCYTE ESTERASE,URINE NEGATIVE (NEGATIVE); NITRITE,URINE NEGATIVE (NEGATIVE); PROTEIN,URINE NEGATIVE (NEGATIVE); UROBILINOGEN,URINE NEGATIVE mg/dL (<2.0)
[2018-06-17 11:49] LABS: URINE SPECIFIC GRAVITY 1.015
--- NOTE | 2018-06-17 12:06 | ER Document Report ---
ED General - General Chief Complaint: Dizziness Stated Complaint: DIZZINESS Time Seen by Provider: 06/17/18 10:48 Notes: Patient is a 77-year-old female that presents to the emergency department for chief complaint of generalized weakness, nausea. Patient states she has been feeling weak in the mornings for the last month. Patient presented with the same symptoms 2 days ago, and had a full evaluation including blood work and chest x-ray, that was essentially unremarkable, and she was discharged home. She states she continues to have the same symptoms, and "wants to know what is going on" she has not follow-up with her primary care physician, in some time, has not been seen as an outpatient in some time. She reports having nausea in the morning but no vomiting and does complain of some epigastric abdominal pain. She denies having any associated fevers, chills, night sweats, chest pain , shortness of breath dysuria or hematuria. She also denies having any headache , numbness, tingling or weakness in one side or the other, denies any facial droop or dysarthria. Past Medical History: Diabetes mellitus, hypertension, hyperlipidemia, peptic ulcer disease, chronic low back pain Past Surgical History: Leg surgery for fracture Social History: Denies current tobacco, alcohol or drug use Family History: Reviewed and noncontributory for presenting illness Allergies: Reviewed, see documented allergy list. REVIEW OF SYSTEMS: Unless otherwise stated in this report the patient's positive and negative responses for review of systems for constitutional, eyes, ENT, cardiovascular, respiratory, gastrointestinal, neurological, genitourinary, musculoskeletal, and integumentary systems and related systems to the presenting problem are either as stated in the HPI or were not pertinent or were negative for the symptoms and/or complaints related to the presenting medical problem. PHYSICAL EXAMINATION: Vital signs reviewed, nursing noted reviewed. GENERAL: Elderly female and in no acute distress. HEAD: Atraumatic, normocephalic. EYES: Eyes appear normal, extraocular movements intact, sclera anicteric, conjunctiva are normal. ENT: nares patent, oropharynx clear without exudates. Moist mucous membranes. NECK: Normal range of motion, supple without lymphadenopathy LUNGS: Breath sounds clear to auscultation bilaterally and equal. No wheezes rales or rhonchi. HEART: Regular rate and rhythm without murmurs ABDOMEN: Soft, mild abdominal discomfort with palpation in the epigastric region , no lower abdominal tenderness with palpation, normoactive bowel sounds. No rebound, guarding, or rigidity. No masses appreciated. EXTREMITIES: Nontender, good range of motion, no pitting or edema. Distal pulses equal bilaterally in all extremities NEUROLOGICAL: No focal neurological deficits. Moves all extremities spontaneously Motor and sensory grossly intact on exam. PSYCH: Normal mood, normal affect. SKIN: Warm, Dry, normal turgor, no rashes or lesions noted on exposed skin TRAVEL OUTSIDE OF THE [place] IN LAST 30 DAYS: No - Related Data Allergies/Adverse Reactions: aspirin [Aspirin] Adverse Reaction (Verified 06/17/18 10:08) Upset stomach, "it messes with my ulcer" Past Medical History - Social History Smoking Status: Never Smoker Chew tobacco use (# tins/day): No Frequency of alcohol use: None Drug Abuse: None Family History: Reviewed & Not Pertinent Patient has suicidal ideation: No Patient has homicidal ideation: No - Past Medical History Cardiac Medical History: Reports: Hx Hypertension Denies: Hx Coronary Artery Disease, Hx Heart Attack Pulmonary Medical History: Reports: Hx Pneumonia Denies: Hx Asthma, Hx Bronchitis, Hx COPD Neurological Medical History: Denies: Hx Cerebrovascular Accident, Hx Seizures Endocrine Medical History: Reports: Hx Diabetes Mellitus Type 2 Renal/ Medical History: Denies: Hx Peritoneal Dialysis GI Medical History: Reports: Hx Gastroesophageal Reflux Disease, Hx Ulcer - Bleeding ulcers, Hx Colonoscopy, Hx Endoscopy. Denies: Hx Pancreatitis Musculoskeletal Medical History: Reports Hx Arthritis - "all over", "mostly in lower back" , Reports Hx Musculoskeletal Deformity, Reports Hx Musculoskeletal Trauma Traumatic Medical History: Reports: Hx Fractures - Multiple fractures Past Surgical History: Reports: Hx Orthopedic Surgery - left wrist. Denies: Hx Hysterectomy - Immunizations Immunizations up to date: No Hx Diphtheria, Pertussis, Tetanus Vaccination: No Physical Exam - Vital signs Vitals: Temp Pulse Resp BP Pulse Ox 98.5 F 75 16 127/63 H 98 06/17/18 10:13 06/17/18 10:13 06/17/18 10:13 06/17/18 10:13 06/17/18 10:13 Course - Re-evaluation Re-evalutation: Patient seen and examined vital signs reviewed. Laboratory data and imaging were ordered as appropriate for the patient's presenting symptoms and complaint, with consideration of any critical or life threatening conditions that may be associated with their obtained history and exam as noted above. Patient was treated with gentle IV fluids Results were reviewed when available and demonstrated unremarkable urinalysis and CBC, her CMP demonstrated a very mild hyponatremia, and very mild hyperkalemia, this was treated with IV fluids with normal saline, do not believe this is a cause of the patient's symptoms The patient was re-evaluated and was still complaining of generalized weakness Evaluation was most consistent with generalized weakness, without specific cause , most likely in this patient's case deconditioning, I did advise her to follow- up with her primary care physician as she may need an echocardiogram as an outpatient, however clinically she does not have acute heart failure, patient was agreeable to this plan of care. There was a recorded pulse ox of 83% 1 minute later after she was recorded at 100%, every time I saw this patient in the emergency department she was 100% on room air, this will be corrected in the chart after discussing with nursing. Results were discussed with the patient at this point, after careful consideration I feel that that patient can be discharged from the emergency department, the patient was educated treatments and reasons to return to the emergency department based on their presumed diagnosis as noted above, they were advised to followup with a primary care physician in 2-3 days. Patient was agreeable to plan of care. *Note is created using voice recognition software and may contain spelling, syntax or grammatical errors. Laboratory 06/17/18 06/17/18 06/17/18 11:12 12:40 12:40 WBC 8.2 RBC 3.74 Hgb 12.4 Hct 37.0 MCV 99 H MCH 33.2 MCHC 33.5 RDW 12.7 Plt Count 386 Seg Neutrophils % 75.6 Lymphocytes % 15.6 Monocytes % 7.8 Eosinophils % 0.7 Basophils % 0.3 Absolute Neutrophils 6.2 Absolute Lymphocytes 1.3 Absolute Monocytes 0.6 Absolute Eosinophils 0.1 Absolute Basophils 0.0 Sodium 136.4 L Potassium 5.4 H Chloride 99 Carbon Dioxide 25 Anion Gap 12 BUN 20 Creatinine 0.81 Est GFR ( Amer) > 60 Est GFR (Non-Af Amer) > 60 Glucose 104 Calcium 9.8 Total Bilirubin 0.6 Direct Bilirubin 0.2 Neonat Total Bilirubin Not Reportable Neonat Direct Bilirubin Not Reportable Neonat Indirect Bili Not Reportable AST 20 ALT 33 Alkaline Phosphatase 70 Creatine Kinase 53 Troponin I Total Protein 6.9 Albumin 4.3 Lipase 54.4 Urine Color YELLOW Urine Appearance HAZY Urine pH 5.0 Ur Specific Ol[place] 1.015 Urine Protein NEGATIVE Urine Glucose (UA) NEGATIVE Urine Ketones NEGATIVE Urine Blood NEGATIVE Urine Nitrite NEGATIVE Urine Bilirubin NEGATIVE Urine Urobilinogen NEGATIVE Ur Leukocyte Esterase NEGATIVE Urine WBC (Auto) 0 Urine RBC (Auto) 1 U Hyaline Cast (Auto) 6 Urine Bacteria (Auto) TRACE Squamous Epi Cells Auto 2 Urine Mucus (Auto) RARE Urine Ascorbic Acid NEGATIVE 06/17/18 12:40 WBC RBC Hgb Hct MCV MCH MCHC RDW Plt Count Seg Neutrophils % Lymphocytes % Monocytes % Eosinophils % Basophils % Absolute Neutrophils Absolute Lymphocytes Absolute Monocytes Absolute Eosinophils Absolute Basophils Sodium Potassium Chloride Carbon Dioxide Anion Gap BUN Creatinine Est GFR ( Amer) Est GFR (Non-Af Amer) Glucose Calcium Total Bilirubin Direct Bilirubin Neonat Total Bilirubin Neonat Direct Bilirubin Neonat Indirect Bili AST ALT Alkaline Phosphatase Creatine Kinase Troponin I < 0.012 Total Protein Albumin Lipase Urine Color Urine Appearance Urine pH Ur Specific Ol[place] Urine Protein Urine Glucose (UA) Urine Ketones Urine Blood Urine Nitrite Urine Bilirubin Urine Urobilinogen Ur Leukocyte Esterase Urine WBC (Auto) Urine RBC (Auto) U Hyaline Cast (Auto) Urine Bacteria (Auto) Squamous Epi Cells Auto Urine Mucus (Auto) Urine Ascorbic Acid - Vital Signs Vital signs: Temp Pulse Resp BP Pulse Ox 98.5 F 64 21 H 141/62 H 83 L 06/17/18 10:13 06/17/18 12:00 06/17/18 14:01 06/17/18 14:00 06/17/18 14:01 - Laboratory Result Diagrams: 06/17/18 12:40 06/17/18 12:40 Laboratory results interpreted by me: 06/17/18 06/17/18 12:40 12:40 MCV 99 H Sodium 136.4 L Potassium 5.4 H Discharge - Discharge Clinical Impression: Weakness, Hyponatremia Condition: Stable Disposition: HOME, SELF-CARE Instructions: Weakness (OM) Additional Instructions: Please return to the emergency department if you have any worsening, or concern of your symptoms. Please return to the emergency department if you develop chest pain, difficulty breathing, severe abdominal pain, or ongoing vomiting. Please follow-up with your primary care physician in 2-3 days and any other recommended physicians. If prescribed, take all medications as directed. If you have any questions or concerns do not hesitate to return the emergency department for evaluation. You may need further testing as an outpatient with your primary care physician, such as an echocardiogram or other blood tests. Referrals: VICKIE SAMUEL, [Primary Care Provider] - Follow up tomorrow
[2018-06-17 12:50] LABS: ABSOLUTE EOSINOPHILS # (AUTO) 0.1 10^3/uL (0.0-0.6); ABSOLUTE LYMPHOCYTES (AUTO) 1.3 10^3/uL (0.5-4.7); ABSOLUTE MONOCYTES (AUTO) 0.6 10^3/uL (0.1-1.4); ABSOLUTE NEUT (AUTO) 6.2 10^3/uL (1.7-8.2); BASOPHILS % (AUTO) 0.3 % (0-2); EOSINOPHILS % (AUTO) 0.7 % (0-6); HEMOGLOBIN 12.4 g/dL (12.0-15.5); LYMPHOCYTES % (AUTO) 15.6 % (13-45); MEAN CORPUSCULAR HEMOGLOBIN 33.2 pg (27.0-33.4); MEAN CORPUSCULAR HGB CONC 33.5 g/dL (32.0-36.0); MEAN CORPUSCULAR VOLUME 99 fl (80-97); MONOCYTES % (AUTO) 7.8 % (3-13); PLATELET COUNT 386 10^3/uL (150-450); RED BLOOD COUNT 3.74 10^6/uL (3.72-5.28); RED CELL DISTRIBUTION WIDTH 12.7 % (11.5-14.0); SEGMENTED NEUTROPHILS % (AUTO) 75.6 % (42-78); TOTAL CELLS COUNTED % (AUTO) 100 %; WHITE BLOOD COUNT 8.2 10^3/uL (4.0-10.5)
[2018-06-17 13:03] LABS: ALANINE AMINOTRANSFERASE 33 U/L (9-52); ALBUMIN 4.3 g/dL (3.5-5.0); ALKALINE PHOSPHATASE 70 U/L (38-126); ANION GAP 12 (5-19); ASPARTATE AMINO TRANSFERASE 20 U/L (14-36); BILIRUBIN,DIRECT 0.2 mg/dL (0.0-0.4); BILIRUBIN,TOTAL 0.6 mg/dL (0.2-1.3); BLOOD UREA NITROGEN 20 mg/dL (7-20); CALCIUM 9.8 mg/dL (8.4-10.2); CARBON DIOXIDE 25 mmol/L (22-30); CHLORIDE 99 mmol/L (98-107); CREATINE KINASE 53 U/L (30-135); GLUCOSE 104 mg/dL (75-110); LIPASE 54.4 U/L (23-300); POTASSIUM 5.4 mmol/L (3.6-5.0); SODIUM 136.4 mmol/L (137-145); TOTAL PROTEIN 6.9 g/dL (6.3-8.2)
[2018-06-17] MEDS ORDERED: NORMAL SALINE 500 ML IV ONE (13:33)
[2018-06-17 14:57] VITALS: BP 141/62
--- NOTE | 2018-06-17 18:14 | EKG REPORT ---
SEVERITY:- BORDERLINE ECG - SINUS RHYTHM ATRIAL PREMATURE COMPLEX BORDERLINE T ABNORMALITIES, ANTERIOR LEADS : Confirmed by: Inocencia Álvarez MD 17-Jun-2018 18:13:51
== END 2018-06-17 15:07 | disposition home or self-care (01) ==
LOC: ER 10:06
DX: E87.1 Hypo-osmolality and hyponatremia (principal); R53.1 Weakness; R42 Dizziness and giddiness; R11.0 Nausea; I10 Essential (primary) hypertension; E11.9 Type 2 diabetes mellitus without complications
CPT/HCPCS: 93005; 99284; 96360; 36415; 82550; 83690; 85025; 80053; 81001; 84484; 93010; J7040

== ENCOUNTER → 2018-06-25 | Day surgery (SDC) | payer MEDICARE, OTHER ==
[~2018-06-25] MED LIST changes: +BETAMET ACET/BETAMET NA INJ 6 MG/1 ML IM PRN; -BETAMET ACET/BETAMET NA INJ 6 MG/1 ML INJ PRN; -BUPIVACAINE HCL 0.5 % INJ/PF 30 ML SDV ONE
--- NOTE | 2018-06-25 15:38 | RADIOLOGY REPORT (SQ) ---
EXAM DESCRIPTION: INJ EPI/SUBARCH/ C/T W/O CATH COMPLETED DATE/TIME: 06/25/2018 2:20 pm REASON FOR STUDY: M54.16 LOW BACK PAIN M54.5 LOW BACK PAIN COMPARISON: 06/01/2018 FLUOROSCOPY TIME: 1.1 minute 3 images saved to PACS. TECHNIQUE: Risks and benefits of the procedure were discussed with the patient, and informed consent was obtained. After fluoroscopic localization, sterile skin prep with Betadine, and local lidocaine for skin and deep tissue anesthesia, a 22-gauge needle was used to acces the dorsal lumbar epidural s pace via paracentral approach at the L5-S1 level. At this point, a small amount of Omnipaque-300 n onionic contrast was injected to confirm needle placement in the epidural space. Subsequently, 6 mg of Celestone and 2.0 ml of dilute Marcaine was injected without complication. LIMITATIONS: None. FINDINGS: None. IMPRESSION: TECHNICALLY SUCCESSFUL LUMBAR EPIDURAL STEROID INJECTION ABOVE. COMMENT: Patient medication list reviewed:Yes- Quality ID# [id number]:Eligible professional attests to docu menting in the medical record they obtained, updated, or reviewed the patient's current medications.. Quality ID 145: Final reports for procedures using fluoroscopy that document radiation exposure miroslava willi, or exposure time and number of fluorographic images (if radiation exposure indices are not avail able) TECHNICAL DOCUMENTATION: JOB ID: [id number] 1979 [employer]- All Rights Reserved Reading location - IP/workstation name: [email or web address]
== END ==
LOC: RAD 12:58
PROVIDERS: ATTEND Physician Assistant
DX: M54.5 Low back pain (principal); M54.16 Radiculopathy, lumbar region
CPT/HCPCS: 62321; J0702

== ENCOUNTER 2018-07-06 11:44 | Day surgery (SDC) | payer MEDICARE, OTHER ==
[~2018-07-06 11:44] MED LIST changes: -BETAMET ACET/BETAMET NA INJ 6 MG/1 ML IM PRN; +PROPOFOL INJ 200 MG/20 ML VIAL IV ONE
--- NOTE | 2018-07-06 13:35 | Operative Report ---
Operative Report DATE OF SURGERY: 07/06/18 Operative Report: The risks, benefits and alternatives of the procedure including the risks of bleeding, perforation requiring surgery are explained to the patient in detail and informed consent is obtained. The patient is taken back to the endoscopy suite and placed in a left, lateral decubital position. Timeout was called. Propofol medication is administered. A rectal examination is done which did not reveal any masses, tears or fissures. An Olympus videoscope was inserted into the patient's rectum. It is carefully advanced all the way to the cecum. The cecum was identified by the usual anatomical landmarks including the ileocecal valve as well as appendiceal office. Attempted intubation of the terminal ileum is unsuccessful there may be a slight stricture. The scope was then sequentially pulled back via the various segments of the colon including the ascending colon, hepatic flexure, transverse colon, splenic flexure, descending colon and finally to the rectosigmoid portions of the colon. Retroflexion maneuver is performed. PREOPERATIVE DIAGNOSIS: Weight loss. 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 colon Otherwise appears to be normal OPERATION: Colonoscopy with biopsy SURGEON: KT CURRAN ANESTHESIA: LMAC TISSUE REMOVED OR ALTERED: As noted above. COMPLICATIONS: None. ESTIMATED BLOOD LOSS: None. INTRAOPERATIVE FINDINGS: As noted above. PROCEDURE: Patient tolerated the procedure well. No immediate postprocedure complications are noted. Patient discharged in good condition. Discharge date 07/06/2018. Discharge diet: Regular. Discharge activity: Regular. 2-3-week follow-up to discuss findings. Patient is instructed call the office or proceed to the emergency room should there be any further problems or questions. Wait on the pathology.
[2018-07-06 13:56] VITALS: BP 109/52
== END 2018-07-06 13:43 | disposition home or self-care (01) ==
LOC: END 11:44
PROVIDERS: ATTEND Internal Medicine Gastroenterology
DX: R19.4 Change in bowel habit (principal); R19.7 Diarrhea, unspecified; R10.84 Generalized abdominal pain; R63.4 Abnormal weight loss; D64.9 Anemia, unspecified; E11.9 Type 2 diabetes mellitus without complications; I10 Essential (primary) hypertension; K21.9 Gastro-esophageal reflux disease without esophagitis; M19.90 Unspecified osteoarthritis, unspecified site; Z68.32 Body mass index [BMI] 32.0-32.9, adult; Z79.899 Other long term (current) drug therapy; Z79.4 Long term (current) use of insulin; Z88.6 Allergy status to analgesic agent
CPT/HCPCS: 45380; 82962; 88305 ×2; J2704; 811

== ENCOUNTER 2019-01-28 11:59 | Day surgery (SDC) | payer MEDICARE, OTHER ==
[~2019-01-28 11:59] MED LIST changes: +DIPHENHYDRAMINE HCL 50 MG/ML VIAL ONE; +EPINEPHRINE INJ 1 MG/10 ML DISP.SYRIN ONE; +FENTANYL CITRATE INJ/PF 100 MCG/2 ML AMPUL ONE; +FLUMAZENIL INJ 0.5 MG/5 ML VIAL ONE; +GLUCAGON,HUMAN RECOMB 1 MG INJ ONE; +NALOXONE HCL INJ/PF 0.4 MG/1 ML SDV ONE; +ONDANSETRON HCL INJ/PF 4 MG/2 ML SDV ONE; -PROPOFOL INJ 200 MG/20 ML VIAL IV ONE
[2019-01-28] MEDS: MIDAZOLAM 2 MG/2 ML INJ ONE ×2 (13:12→13:14)
--- NOTE | 2019-01-28 13:39 | Operative Report ---
Operative Report DATE OF SURGERY: 01/28/19 Operative Report: The risks benefits and alternatives of the procedure explained to the patient in detail and informed consent is obtained.A GIF Olympus video scope was inserted into the patient's mouth and hypopharynx, the esophagus is identified intubated and insufflated ,the scope was then advanced through the esophagus stomach and duodenum, retroflexion maneuver is done, the esophagus stomach and first and second portions of the duodenum examined. PREOPERATIVE DIAGNOSIS: Epigastric pain, melena POSTOPERATIVE DIAGNOSIS: Gastritis status post biopsy for Helicobacter pylori. Hiatal hernia. 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 EGD with biopsy SURGEON: KT CURRAN ANESTHESIA: Moderate Sedation - 4 mg of Versed TISSUE REMOVED OR ALTERED: As noted above COMPLICATIONS: None. ESTIMATED BLOOD LOSS: None. INTRAOPERATIVE FINDINGS: As noted above. PROCEDURE: Patient tolerated the procedure well. No immediate postprocedure complications are noted. Patient discharged in good condition. Discharge date 01/28/2019. Discharge diet: Regular. Discharge activity: Regular. 2 to 3-week follow-up to discuss findings. Patient is instructed to call the office or proceed to the emergency room should there be any further proximal questions. Wait on the pathology.
[2019-01-28 14:18] VITALS: BP 106/70
== END 2019-01-28 14:25 ==
LOC: END 11:59
PROVIDERS: ATTEND Internal Medicine Gastroenterology
DX: K44.9 Diaphragmatic hernia without obstruction or gangrene (principal); K29.50 Unspecified chronic gastritis without bleeding; K22.70 Barrett's esophagus without dysplasia; K92.1 Melena
CPT/HCPCS: 43270; 43239; 82962; 88342 ×2; 88305 ×2; J2250; J0171; J1200; J1610; J2310; J2405; J3010; J3490

== ENCOUNTER → 2019-03-03 | Outpatient (CLI) | payer MEDICARE, OTHER ==
--- NOTE | 2019-03-03 13:42 | RADIOLOGY REPORT (SQ) ---
EXAM DESCRIPTION: U/S ABDOMEN LIMITED W/O DOP COMPLETED DATE/TIME: 03/03/2019 11:22 am REASON FOR STUDY: R10.11 RIGHT UPPER QUADRANT PAIN R10.11 RIGHT UPPER QUADRANT PAIN COMPARISON: CT dated 02/24/2018. TECHNIQUE: Dynamic and static grayscale images acquired of the abdomen and recorded on PACS. Additio nal selected color Doppler and spectral images recorded. LIMITATIONS: None. FINDINGS: PANCREAS: No masses. Visualized pancreatic duct normal caliber. LIVER: No masses. Echotexture normal. LIVER VASCULATURE: Normal directional flow of the main portal vein and hepatic veins. GALLBLADDER: No stones. Normal wall thickness. No pericholecystic fluid. ULTRASOUND-DETECTED CALVILLO'S SIGN: Negative. INTRAHEPATIC DUCTS AND COMMON DUCT: CBD and intrahepatic ducts normal caliber. No filling defects. INFERIOR VENA CAVA: Normal flow. AORTA: No aneurysm. RIGHT KIDNEY: Normal size. Normal echogenicity. 1.1 cm hypoechoic area in the superior pole of the right kidney. No solid or suspicious masses. No hydronephrosis. No calcifications. PERITONEAL AND RIGHT PLEURAL SPACE: No ascites or effusions. OTHER: No other significant findings. IMPRESSION: PROBABLE SMALL CORTICAL CYST IN THE RIGHT KIDNEY. OTHERWISE UNREMARKABLE RIGHT UPPER QU ADRANT ULTRASOUND. TECHNICAL DOCUMENTATION: JOB ID: [id number] [employer]- All Rights Reserved Reading location - IP/workstation name: [email or web address]
== END ==
LOC: SP 08:34
PROVIDERS: ATTEND Internal Medicine Gastroenterology
DX: R10.11 Right upper quadrant pain (principal)
CPT/HCPCS: 76705

== ENCOUNTER → 2019-03-05 | Outpatient (CLI) | payer MEDICARE ==
--- NOTE | 2019-03-05 10:43 | RADIOLOGY REPORT (SQ) ---
EXAM DESCRIPTION: NM HIDA SCAN WITH CCK COMPLETED DATE/TIME: 03/05/2019 10:30 am REASON FOR STUDY: RUQ PAIN (R10.11) R10.11 RIGHT UPPER QUADRANT PAIN COMPARISON: None. RADIONUCLIDE AND DOSE: DOSAGE RADIONUCLIDE: 5.47 millicuries Tc99m Mebrofenin. DOSAGE CCK: 1.6 micrograms. DOSAGE MORPHINE: Not required. The route of agent administration: Intravenous TECHNIQUE: Serial imaging right upper quadrant up to 60 minutes following injection of radionuclide. CCK injected after gallbladder visualized. LIMITATIONS: None. FINDINGS: LIVER: Normal visualization without areas of photopenia. INTRAHEPATIC BILE DUCTS: Normal size and no delay in visualization. COMMON BILE DUCT: Normal without dilatation. GALLBLADDER: Normal visualization. Calculated ejection fraction of 10%. Normal range is greater th an 35%. PHYSICAL RESPONSE: Patients presenting complaint were reproduced. OTHER: No other significant finding. IMPRESSION: 1. ABNORMAL STUDY. The GALLBLADDER EJECTION FRACTION is 10% (normal range is greater omar n 35%). EVIDENCE FOR BILIARY DYSKINESIS. 2. Patient's symptoms were reproduced following CCK administration. TECHNICAL DOCUMENTATION: JOB ID: [id number] [employer]- All Rights Reserved Reading location - IP/workstation name: [email or web address]
== END ==
LOC: RAD 07:11
PROVIDERS: ATTEND Internal Medicine Gastroenterology
DX: R10.11 Right upper quadrant pain (principal)
CPT/HCPCS: 78227; J2805; A9537; Q9969

== ENCOUNTER → 2019-06-11 | Outpatient (CLI) | payer MEDICARE, OTHER ==
--- NOTE | 2019-06-11 14:38 | RADIOLOGY REPORT (SQ) ---
EXAM DESCRIPTION: CT CERVICAL SPINE WITHOUT COMPLETED DATE/TIME: 06/11/2019 2:24 pm REASON FOR STUDY: M54.12 RADICULOPATHY, CERVICAL REGION M54.16 RADICULOPATHY, LUMBAR REGION M54.12 RADICULOPATHY, CERVICAL REGION COMPARISON: None. TECHNIQUE: Axial images acquired through the cervical spine without intravenous contrast. Images re viewed with lung, soft tissue and bone windows. Reconstructed coronal and sagittal MPR images review ed. Images stored on PACS. All CT scanners at this facility use dose modulation, iterative reconstruction, and/or weight based d osing when appropriate to reduce radiation dose to as low as reasonably achievable (ALARA). [facility]: Dose Right [facility]: CareDose [facility]: Dose Right [facility]: Teradose 4D [facility]: [employer] RADIATION DOSE: CT Rad equipment meets quality standard of care and radiation dose reduction techniq ues were employed. CTDIvol: 19.8 mGy. DLP: 463 mGy-cm. mGy. LIMITATIONS: None. FINDINGS: ALIGNMENT: Anatomic. MINERALIZATION: Normal. VERTEBRAL BODIES: No fractures or dislocation. DISCS: Disc spaces are narrowed from C5-T1 with marginal osteophytes. There is mild right foraminal narrowing all at C3-4 secondary to uncovertebral osteophytes and facet changes. There is left forami nal narrowing at C7-T1 secondary to uncovertebral osteophytes. FACETS, LATERAL MASSES, POSTERIOR ELEMENTS: Hypertrophic facet changes seen bilaterally. HARDWARE: None in the spine. VISUALIZED RIBS: No fractures. LUNG APICES AND SOFT TISSUES: No significant or acute findings. OTHER: No other significant finding. IMPRESSION: Degenerative disc disease, spondylosis, and facet arthropathy. There is mild right fora nidhi narrowing secondary to uncovertebral osteophytes and facet hypertrophy at C3-4. There is left foraminal narrowing at C7-T1 secondary to uncovertebral osteophytes. TECHNICAL DOCUMENTATION: JOB ID: [id number] Quality ID # [id number]: Final reports with documentation of one or more dose reduction techniques (e.g., Au tomated exposure control, adjustment of the mA and/or kV according to patient size, use of iterative reconstruction technique) 2010 [employer]- All Rights Reserved Reading location - IP/workstation name: [email or web address]
--- NOTE | 2019-06-11 14:39 | RADIOLOGY REPORT (SQ) ---
EXAM DESCRIPTION: CT LUMBAR SPINE WITHOUT COMPLETED DATE/TIME: 06/11/2019 2:24 pm REASON FOR STUDY: M54.16 RADICULOPATHY, LUMBAR REGION M54.16 RADICULOPATHY, LUMBAR REGION M54.12 R ADICULOPATHY, CERVICAL REGION COMPARISON: 02/23/2019 TECHNIQUE: Axial images acquired through the lumbar spine without intravenous contrast. Images revi ewed with lung, soft tissue and bone windows. Reconstructed coronal and sagittal MPR images reviewed . All images stored on PACS. All CT scanners at this facility use dose modulation, iterative reconstruction, and/or weight based d osing when appropriate to reduce radiation dose to as low as reasonably achievable (ALARA). [facility]: Dose Right [facility]: CareDose [facility]: Dose Right [facility]: Teradose 4D [facility]: [employer] RADIATION DOSE: CT Rad equipment meets quality standard of care and radiation dose reduction techniq ues were employed. CTDIvol: 16.4 mGy. DLP: 466 mGy-cm. mGy. LIMITATIONS: None. FINDINGS: SEGMENTATION: Normal. No transitional anatomy. ALIGNMENT: Mild straightening of the normal lumbar lordosis. Grade 1 anterolisthesis of L4 on L5 wit h associated grade 1 retrolisthesis of L3 on L4, stable. VERTEBRAL BODIES: No evidence of acute fracture. Multilevel endplate change. L3 Schmorl's nodes vira ng the superior and inferior endplates, similar to prior. DISCS: Multilevel disc height loss throughout the lumbar spine. Disc vacuum phenomenon at L 3 4, T12 -L1 and L1-L2. Multilevel small posterior disc bulges with mild canal stenosis, evaluation limited w ithout intrathecal contrast. PEDICLES, TRANSVERSE PROCESSES: No fractures. No dislocation. No acute findings. FACETS, POSTERIOR ELEMENTS: Multilevel facet arthropathy greatest at L3-S1. No high-grade osseous ne ural foraminal narrowing. HARDWARE: None in the spine. VISUALIZED RIBS: No fractures. SOFT TISSUES: Aortic atherosclerosis. OTHER: No other significant finding. IMPRESSION: 1. No evidence of acute bony abnormality of the lumbar spine. 2. Multilevel degenerative changes of the thoracolumbar spine as detailed above. No high-grade osse ous spinal canal or neural foraminal narrowing although evaluation limited without intrathecal contra st. TECHNICAL DOCUMENTATION: JOB ID: [id number] Quality ID # [id number]: Final reports with documentation of one or more dose reduction techniques (e.g., Au tomated exposure control, adjustment of the mA and/or kV according to patient size, use of iterative reconstruction technique) 2010 [employer]- All Rights Reserved Reading location - IP/workstation name: [email or web address]
== END ==
LOC: RAD 13:24
PROVIDERS: ATTEND Family Medicine Geriatric Medicine
DX: M51.15 Intervertebral disc disorders with radiculopathy, thoracolumbar region (principal); M50.13 Cervical disc disorder with radiculopathy, cervicothoracic region
CPT/HCPCS: 72125; 72131

== ENCOUNTER → 2019-06-14 | Outpatient (CLI) | payer MEDICARE, OTHER ==
[2019-06-14 10:37] LABS: ABSOLUTE EOSINOPHILS # (AUTO) 0.1 10^3/uL (0.0-0.6); ABSOLUTE LYMPHOCYTES (AUTO) 1.3 10^3/uL (0.5-4.7); ABSOLUTE MONOCYTES (AUTO) 0.5 10^3/uL (0.1-1.4); ABSOLUTE NEUT (AUTO) 5.2 10^3/uL (1.7-8.2); BASOPHILS % (AUTO) 0.3 % (0-2); EOSINOPHILS % (AUTO) 1.5 % (0-6); HEMATOCRIT 36.5 % (36.0-47.0); HEMOGLOBIN 12.2 g/dL (12.0-15.5); LYMPHOCYTES % (AUTO) 18.8 % (13-45); MEAN CORPUSCULAR HEMOGLOBIN 32.6 pg (27.0-33.4); MEAN CORPUSCULAR HGB CONC 33.4 g/dL (32.0-36.0); MEAN CORPUSCULAR VOLUME 98 fl (80-97); MONOCYTES % (AUTO) 6.5 % (3-13); PLATELET COUNT 350 10^3/uL (150-450); RED BLOOD COUNT 3.74 10^6/uL (3.72-5.28); RED CELL DISTRIBUTION WIDTH 13.1 % (11.5-14.0); SEGMENTED NEUTROPHILS % (AUTO) 72.9 % (42-78); TOTAL CELLS COUNTED % (AUTO) 100 %; WHITE BLOOD COUNT 7.1 10^3/uL (4.0-10.5)
[2019-06-14 11:01] LABS: ALBUMIN 3.9 g/dL (3.5-5.0); ALKALINE PHOSPHATASE 69 U/L (38-126); ANION GAP 7 (5-19); ASPARTATE AMINO TRANSFERASE 17 U/L (14-36); BILIRUBIN,DIRECT 0.1 mg/dL (0.0-0.4); BILIRUBIN,TOTAL 0.2 mg/dL (0.2-1.3); BLOOD UREA NITROGEN 18 mg/dL (7-20); CALCIUM 9.6 mg/dL (8.4-10.2); CARBON DIOXIDE 30 mmol/L (22-30); CHLORIDE 103 mmol/L (98-107); POTASSIUM 4.8 mmol/L (3.6-5.0); TOTAL PROTEIN 6.6 g/dL (6.3-8.2); TRIGLYCERIDES 119 mg/dL (<150)
[2019-06-14 11:13] LABS: DIRECT LDL 85 mg/dL (<100)
[2019-06-14 11:24] LABS: GLUCOSE 63 mg/dL (75-110)
[2019-06-15 13:37] LABS: ANTICHROMATIN AB <0.2 AI (0.0-0.9); CENTROMERE B AB <0.2 AI (0.0-0.9); JO-1 ANTIBODY (ANACOMP) <0.2 AI (0.0-0.9); SJOGREN'S ANTI-SS-B AB <0.2 AI (0.0-0.9); SJOGREN'S SS-A ANTIBODY <0.2 AI (0.0-0.9)
[2019-06-15 13:51] LABS: DNA DOUBLE STRAND ANTIBODY ANA <1 IU/mL (0-9)
[2019-06-15 14:37] LABS: CREATININE URINE 124.1 mg/dL (Not Estab.); MICROALBUMIN URINE 13.9 ug/mL (Not Estab.)
== END ==
LOC: OD 09:44
PROVIDERS: ATTEND Family Medicine Geriatric Medicine
DX: I10 Essential (primary) hypertension (principal); E11.319 Type 2 diabetes mellitus with unspecified diabetic retinopathy without macular edema; K21.0 Gastro-esophageal reflux disease with esophagitis; E66.9 Obesity, unspecified; M54.16 Radiculopathy, lumbar region; M54.5 Low back pain; M54.12 Radiculopathy, cervical region; M15.9 Polyosteoarthritis, unspecified; G89.4 Chronic pain syndrome; Z79.899 Other long term (current) drug therapy; Z68.31 Body mass index [BMI] 31.0-31.9, adult
CPT/HCPCS: 36415; 80053; 80061; 82043; 82570; 83036; 84443; 85025; 86225; 86235; 86430

== ENCOUNTER → 2019-06-26 | Outpatient (CLI) | payer MEDICARE, OTHER ==
--- NOTE | 2019-06-26 11:31 | RADIOLOGY REPORT (SQ) ---
EXAM DESCRIPTION: MRI LUMBAR SPINE WITHOUT COMPLETED DATE/TIME: 06/26/2019 10:42 am REASON FOR STUDY: (M51.36)OTHER INTERVERTEBRAL DISC DEGENERATION, LUMBAR REGION M51.36 OTHER INTERV ERTEBRAL DISC DEGENERATION, LUMBAR REGION COMPARISON: CT from recently. TECHNIQUE: Sagittal and Axial imaging includes T1, T2, STIR and gradient echo sequences. Coronal T2/ HASTE imaging. LIMITATIONS: None. FINDINGS: VISUALIZED UPPER ABDOMEN: Limited evaluation. No acute or suspicious findings. Chronic l eft adrenal mass. Prior CT from last year shows this to represent an adenoma. SEGMENTATION: No transitional anatomy. The lowest well-developed disc space is labeled L5-S1. ALIGNMENT: Grade 1 listhesis at L4-5. VERTEBRAE: No acute fracture. Chronic appearing compression of the inferior L2 endplate. BONE MARROW: Mild L3-4 endplate edema. DISC SIGNAL: Variable signal and height loss throughout. POSTERIOR ELEMENTS: Variable facet arthropathy. No pars defect. HARDWARE: None in the spine. CORD AND CONUS: Normal in size and signal intensity. Conus at the appropriate level. SOFT TISSUES: No aortic aneurysm seen. No bulky retroperitoneal adenopathy or mass. No paraspinal mas s or fluid. L1-L2: Mild disc bulge without impingement or stenosis. L2-L3: Mild disc bulge and mild facet arthropathy without impingement or stenosis. L3-L4: Mild disc bulge. Mild facet overgrowth with mild-moderate central canal narrowing and fairly mild bilateral foraminal encroachment. L4-L5: Mild malalignment with broad disc bulge flattening the ventral thecal sac. Posterior ligament thickening and facet overgrowth with generally mild central and foraminal narrowing. L5-S1: Mild disc bulge without impingement. Facet arthropathy without significant central stenosis. Up to moderate left foraminal narrowing. LOWER THORACIC: Incompletely imaged. No stenosis seen. SACRUM: Visualized upper sacrum intact. OTHER: No other significant findings. IMPRESSION: 1. Multilevel spondylosis. Includes mild degenerative listhesis at L4-5. 2. No high-grade stenosis. Mild-moderate central narrowing at L3-4. 3. No acute fracture. No worrisome bone lesion. TECHNICAL DOCUMENTATION: JOB ID: [id number] [employer]- All Rights Reserved Reading location - IP/workstation name: [email or web address]
== END ==
LOC: RAD 09:23
PROVIDERS: ATTEND Orthopaedic Surgery
DX: M51.36 Other intervertebral disc degeneration, lumbar region (principal); M47.896 Other spondylosis, lumbar region
CPT/HCPCS: 72148

== ENCOUNTER 2019-12-28 09:07 | Emergency (ER) | payer MEDICARE, OTHER ==
[2019-12-28 10:36] LABS: ABSOLUTE LYMPHOCYTES (AUTO) 1.2 10^3/uL (0.5-4.7); ABSOLUTE MONOCYTES (AUTO) 0.4 10^3/uL (0.1-1.4); BASOPHILS % (AUTO) 0.3 % (0-2); EOSINOPHILS % (AUTO) 0.4 % (0-6); HEMATOCRIT 33.9 % (36.0-47.0); HEMOGLOBIN 11.4 g/dL (12.0-15.5); LYMPHOCYTES % (AUTO) 15.5 % (13-45); MEAN CORPUSCULAR HEMOGLOBIN 33.5 pg (27.0-33.4); MEAN CORPUSCULAR HGB CONC 33.7 g/dL (32.0-36.0); MEAN CORPUSCULAR VOLUME 99 fl (80-97); MONOCYTES % (AUTO) 4.7 % (3-13); PLATELET COUNT 418 10^3/uL (150-450); RED BLOOD COUNT 3.41 10^6/uL (3.72-5.28); RED CELL DISTRIBUTION WIDTH 14.3 % (11.5-14.0); SEGMENTED NEUTROPHILS % (AUTO) 79.1 % (42-78); TOTAL CELLS COUNTED % (AUTO) 100 %; WHITE BLOOD COUNT 7.6 10^3/uL (4.0-10.5)
[2019-12-28 11:02] LABS: ALBUMIN 3.7 g/dL (3.5-5.0); ALKALINE PHOSPHATASE 64 U/L (38-126); ANION GAP 6 (5-19); ASPARTATE AMINO TRANSFERASE 26 U/L (14-36); BILIRUBIN,TOTAL 0.1 mg/dL (0.2-1.3); BLOOD UREA NITROGEN 11 mg/dL (7-20); CALCIUM 8.9 mg/dL (8.4-10.2); CARBON DIOXIDE 24 mmol/L (22-30); CHLORIDE 109 mmol/L (98-107); GLUCOSE 74 mg/dL (75-110); POTASSIUM 4.5 mmol/L (3.6-5.0); TOTAL PROTEIN 6.2 g/dL (6.3-8.2)
--- NOTE | 2019-12-28 11:35 | RADIOLOGY REPORT (SQ) ---
EXAM DESCRIPTION: L SPINE 2 VIEWS IMAGES COMPLETED DATE/TIME: 12/28/2019 11:25 am REASON FOR STUDY: pain COMPARISON: None. NUMBER OF VIEWS: Three views TECHNIQUE: AP, coned and lateral radiographic images acquired of the lumbar spine. LIMITATIONS: None. FINDINGS: MINERALIZATION: Decreased SEGMENTATION: 5 ohy-lfw-uvweqjn lumbar vertebral bodies. ALIGNMENT: Straightening of the normal lumbar lordosis. Mild grade 1 anterolisthesis of L4 on L5, st able. Additional grade 1 anterolisthesis of L5 on S1. VERTEBRAE: No fracture. Multilevel endplate change, stable. DISCS: Disc height loss throughout the lumbar spine greatest at L3-4, L4-5 and L5-S1. POSTERIOR ELEMENTS: No definite fracture. Lower lumbar facet arthropathy. HARDWARE: None in the spine. PARASPINAL SOFT TISSUES: Vascular calcifications. PELVIS: Intact as visualized. No fractures or worrisome bone lesions. SI joints intact. OTHER: No other significant finding. IMPRESSION: 1. No evidence of acute bony abnormality of the lumbar spine. 2. Multilevel degenerative disc disease and lower lumbar facet arthropathy as above. TECHNICAL DOCUMENTATION: JOB ID: [id number] 2010 [employer]- All Rights Reserved Reading location - IP/workstation name: [email or web address]
--- NOTE | 2019-12-28 11:40 | RADIOLOGY REPORT (SQ) ---
EXAM DESCRIPTION: HIP RIGHT AP/LATERAL IMAGES COMPLETED DATE/TIME: 12/28/2019 11:25 am REASON FOR STUDY: pain COMPARISON: 09/19/2011 NUMBER OF VIEWS: Two views. TECHNIQUE: AP pelvis and additional frog-leg view of the right hip. LIMITATIONS: None. FINDINGS: MINERALIZATION: Normal. RIGHT HIP: No displaced fracture. Mild sclerotic band and trabecular indistinctness about the head n veronica junction. Degenerative changes at the acetabulum with mild joint space loss and osteophytosis. LEFT HIP: No fracture dislocation. No suspicious osseous lesions. Mild degenerative change. PUBIS AND ISCHIUM: No fracture. PELVIS: No fracture. SACRUM: SI joint osteophytosis. LOWER LUMBAR SPINE: Spondylosis. SOFT TISSUES: Calcified uterine fibroid, stable. OTHER: No other significant finding. IMPRESSION: No displaced fracture. Sclerotic band and trabecular indistinctness about the right proximal femur may represent nondisplace d subcapital fracture. If inability to bear weight or high clinical concern for acute traumatic inju ry consider CT or MR. TECHNICAL DOCUMENTATION: JOB ID: [id number] 2010 [employer]- All Rights Reserved Reading location - IP/workstation name: [email or web address]
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
[2019-12-28] MEDS ORDERED: HYDROCODONE/ACETAMINOPHEN 5-325 MG TABLET PO ONE (13:22)
[2019-12-28] MEDS ORDERED: KETOROLAC TROMETHAMINE 60 MG/2 ML SDV IM ONE (13:26)
--- NOTE | 2019-12-28 13:38 | RADIOLOGY REPORT (SQ) ---
EXAM DESCRIPTION: VENOUS UNILATERAL LOWER IMAGES COMPLETED DATE/TIME: 12/28/2019 1:13 pm REASON FOR STUDY: right leg pain/swelling COMPARISON: None. TECHNIQUE: Dynamic and static moore scale and color images acquired of the right leg venous system. S elected spectral images acquired with additional compression and augmentation maneuvers. The contrala teral common femoral vein and saphenofemoral junction were also imaged. Images stored on PACS. LIMITATIONS: None. FINDINGS: RIGHT COMMON FEMORAL: Normal phasicity, compression and augmentation. No visualized echogenic material on g ray scale. No defects on color images. FEMORAL: Normal compression and augmentation. No visualized echogenic material on moore scale. No defe cts on color images. POPLITEAL: Normal compression, augmentation. No visualized echogenic material on moore scale. No defec ts on color images. CALF VESSELS: Normal compression, augmentation. No visualized echogenic material on moore scale. No de fects on color images. GSV and SSV: Normal compression, augmentation. No visualized echogenic material on moore scale. No def ects on color images. ANY DEEP VENOUS INSUFFICIENCY: Not evaluated. ANY EVIDENCE OF POPLITEAL CYST: No. OTHER: No other significant finding. LEFT COMMON FEMORAL VEIN AND SAPHENOFEMORAL JUNCTION: Normal phasicity, compression and augmentation. No visualized echogenic material on moore scale. No de fects on color images. IMPRESSION: NO EVIDENCE OF DVT OR SVT IN THE RIGHT LEG. TECHNICAL DOCUMENTATION: JOB ID: [id number] 2010 [employer]- All Rights Reserved Reading location - IP/workstation name: [email or web address]
--- NOTE | 2019-12-28 15:26 | RADIOLOGY REPORT (SQ) ---
EXAM DESCRIPTION: CT RT LOWER EXTREMITY WITHOUT IMAGES COMPLETED DATE/TIME: 12/28/2019 12:05 pm REASON FOR STUDY: right hip pain/xray changes COMPARISON: None. TECHNIQUE: CT scan of the right hip performed without intravenous or oral contrast. Images reviewed with soft tissue and bone windows. Reconstructed coronal and sagittal MPR images reviewed. All toshia ges stored on PACS. All CT scanners at this facility use dose modulation, iterative reconstruction, and/or weight based d osing when appropriate to reduce radiation dose to as low as reasonably achievable (ALARA). [facility]: Dose Right [facility]: CareDose [facility]: Dose Right [facility]: Teradose 4D [facility]: ZenCard RADIATION DOSE: CT Rad equipment meets quality standard of care and radiation dose reduction techniq ues were employed. CTDIvol: 31.0 mGy. DLP: 896 mGy-cm. mGy. LIMITATIONS: None. FINDINGS: PELVIC BONES: No acute fracture. No worrisome bone lesions. VISUALIZED SPINE: No acute findings. RIGHT HIP: No acute fracture or dislocation. No worrisome bone lesions. Mild degenerative change wit h small osteophytes and mild joint space loss. LEFT HIP: No acute fracture or dislocation. No worrisome bone lesions. Mild degenerative change with small osteophytes and joint space loss. PELVIC SOFT TISSUES: Dense calcification was on the right hemipelvis likely from prior atrophic calci fied uterine fibroid. EXTRAPELVIC SOFT TISSUES: Punctate subcutaneous calcifications throughout the anterior abdominal wall . Vascular calcifications. Fat centered 2.4 cm lesion within the anterior left abdominal wall, like ly lipoma. OTHER: Lower lumbar spondylosis and facet arthropathy. IMPRESSION: 1. No evidence of acute bony abnormality of the right hip. 2. Mild degenerative changes at the hips. TECHNICAL DOCUMENTATION: JOB ID: [id number] Quality ID # [id number]: Final reports with documentation of one or more dose reduction techniques (e.g., Au tomated exposure control, adjustment of the mA and/or kV according to patient size, use of iterative reconstruction technique) 2010 [employer]- All Rights Reserved Reading location - IP/workstation name: [email or web address]
[2019-12-28 16:09] VITALS: BP 175/74
== END 2019-12-28 16:10 | disposition home or self-care (01) ==
LOC: ER 09:07
DX: M25.551 Pain in right hip (principal); M47.816 Spondylosis without myelopathy or radiculopathy, lumbar region; I10 Essential (primary) hypertension; E11.9 Type 2 diabetes mellitus without complications
CPT/HCPCS: 99284; 96372; 36415; 85025; 80053; 93971; 73502; 72100; 73700; J1885

== ENCOUNTER → 2020-04-10 | Outpatient (CLI) | payer MEDICARE, OTHER ==
--- NOTE | 2020-04-10 12:05 | RADIOLOGY REPORT (SQ) ---
EXAM DESCRIPTION: C SP 4 OR 5 VIEWS IMAGES COMPLETED DATE/TIME: 04/10/2020 11:53 am REASON FOR STUDY: NECK PAIN G44.211 EPISODIC TENSION-TYPE HEADACHE, INTRACTABLE M54.2 CERVICALGIA COMPARISON: 02/23/2019 NUMBER OF VIEWS: Five views including obliques. TECHNIQUE: AP, lateral, obliques and odontoid radiographic images acquired of the cervical spine. LIMITATIONS: None. FINDINGS: MINERALIZATION: Normal. ALIGNMENT: Normal. VERTEBRAE: Maintained height. No fracture or worrisome bone lesion. DISCS: Multilevel disc space narrowing with osteophytes. Changes are most prominent at C5-C6 and C6- C7. POSTERIOR ELEMENTS: Pedicles and facets are intact. No posterior arch defects. Facet arthropathy is present. FORAMINA: No high-grade foraminal narrowing. Mild bilateral foraminal narrowing at C4-5. Asymmetric narrowing of the right neural foramen at C3-4. HARDWARE: None in the spine. PARASPINAL SOFT TISSUES: Normal. OTHER: No other significant finding. IMPRESSION: Multilevel disc degenerative disease. No significant change from prior study. TECHNICAL DOCUMENTATION: JOB ID: [id number] 2010 [employer]- All Rights Reserved Reading location - IP/workstation name: [email or web address]
== END ==
LOC: OD 11:22
PROVIDERS: ATTEND Family Medicine
DX: M50.323 Other cervical disc degeneration at C6-C7 level (principal); G44.211 Episodic tension-type headache, intractable
CPT/HCPCS: 72050

== ENCOUNTER 2020-05-05 09:41 | Emergency (ER) | payer MEDICARE, OTHER ==
--- NOTE | 2020-05-05 10:40 | ER Document Report ---
ED Medical Screen (RME) - General Chief Complaint: Abnormal Lab Results Stated Complaint: ABNORMAL LABS Time Seen by Provider: 05/05/20 10:33 Primary Care Provider: VICKIE SAMUEL DO [Primary Care Provider] - Follow up as needed Mode of Arrival: Wheelchair Information source: Patient Notes: Patient presents complaining of generalized body aches that are worse to her back. Patient complains of tenderness to the entire back area. Patient states that she has chronic anemia and feels that her blood count may be low when she may need a transfusion. Patient denies any abnormal bleeding or bruising. Patient denies any fever, nausea, vomiting or diarrhea. Patient denies any urinary symptoms. Patient has a history of hypertension, anemia, diabetes and stomach ulcer. I have greeted and performed a rapid initial assessment of this patient. A comprehensive ED assessment and evaluation of the patient, analysis of test results and completion of the medical decision making process will be conducted by additional ED providers. TRAVEL OUTSIDE OF THE [place] IN LAST 30 DAYS: No - Related Data Allergies/Adverse Reactions: aspirin [Aspirin] Adverse Reaction (Verified 01/28/19 12:03) Upset stomach, "it messes with my ulcer" Past Medical History - Social History Family history: Arthritis, CAD, DM, Hyperlipidemia, Hypertension - Past Medical History Cardiac Medical History: Reports: Hx Hypertension Denies: Hx Coronary Artery Disease, Hx Heart Attack Pulmonary Medical History: Reports: Hx Pneumonia Denies: Hx Asthma, Hx Bronchitis, Hx COPD Neurological Medical History: Denies: Hx Cerebrovascular Accident, Hx Seizures Endocrine Medical History: Reports: Hx Diabetes Mellitus Type 2 Renal/ Medical History: Denies: Hx Peritoneal Dialysis GI Medical History: Reports: Hx Gastroesophageal Reflux Disease, Hx Ulcer - Bleeding ulcers, Hx Colonoscopy, Hx Endoscopy. Denies: Hx Pancreatitis Musculoskeltal Medical History: Reports Hx Arthritis - "all over", "mostly in lower back" , Reports Hx Musculoskeletal Deformity, Reports Hx Musculoskeletal Trauma, Denies Hx Systemic Lupus Erythematosus Traumatic Medical History: Reports: Hx Fractures - Multiple fractures Past Surgical History: Reports: Hx Orthopedic Surgery - left wrist. Denies: Hx Hysterectomy - Immunizations Immunizations up to date: No Hx Diphtheria, Pertussis, Tetanus Vaccination: No Physical Exam - Vital signs Vitals: Temp Pulse Resp BP Pulse Ox 98.0 F 73 20 148/53 H 99 05/05/20 09:55 05/05/20 09:55 05/05/20 09:55 05/05/20 09:55 05/05/20 09:55 - Back Back: Tender - Generalized tenderness upper and lower back area Course - Vital Signs Vital signs: Temp Pulse Resp BP Pulse Ox 98.0 F 73 20 148/53 H 99 05/05/20 09:55 05/05/20 09:55 05/05/20 09:55 05/05/20 09:55 05/05/20 09:55 Doctor's Discharge - Discharge Referrals: VICKIE SAMUEL DO [Primary Care Provider] - Follow up as needed
[2020-05-05 11:17] LABS: ABSOLUTE LYMPHOCYTES (AUTO) 1.6 10^3/uL (0.5-4.7); ABSOLUTE MONOCYTES (AUTO) 0.4 10^3/uL (0.1-1.4); ABSOLUTE NEUT (AUTO) 5.8 10^3/uL (1.7-8.2); BASOPHILS % (AUTO) 0.3 % (0-2); EOSINOPHILS % (AUTO) 0.5 % (0-6); HEMATOCRIT 35.6 % (36.0-47.0); HEMOGLOBIN 12.4 g/dL (12.0-15.5); LYMPHOCYTES % (AUTO) 19.9 % (13-45); MEAN CORPUSCULAR HEMOGLOBIN 34.3 pg (27.0-33.4); MEAN CORPUSCULAR VOLUME 98 fl (80-97); MONOCYTES % (AUTO) 5.3 % (3-13); PLATELET COUNT 379 10^3/uL (150-450); RED BLOOD COUNT 3.62 10^6/uL (3.72-5.28); RED CELL DISTRIBUTION WIDTH 14.5 % (11.5-14.0); TOTAL CELLS COUNTED % (AUTO) 100 %; WHITE BLOOD COUNT 7.9 10^3/uL (4.0-10.5)
[2020-05-05 11:32] LABS: ALBUMIN 4.1 g/dL (3.5-5.0); ALKALINE PHOSPHATASE 56 U/L (38-126); ANION GAP 8 (5-19); ASPARTATE AMINO TRANSFERASE 17 U/L (14-36); BILIRUBIN,DIRECT 0.2 mg/dL (0.0-0.4); BILIRUBIN,TOTAL 0.3 mg/dL (0.2-1.3); BLOOD UREA NITROGEN 14 mg/dL (7-20); CALCIUM 9.2 mg/dL (8.4-10.2); CARBON DIOXIDE 26 mmol/L (22-30); CHLORIDE 102 mmol/L (98-107); CREATINE KINASE 35 U/L (30-135); GLUCOSE 83 mg/dL (75-110); POTASSIUM 4.8 mmol/L (3.6-5.0); TOTAL PROTEIN 6.5 g/dL (6.3-8.2)
--- NOTE | 2020-05-05 12:48 | ER Document Report ---
ED General - General Chief Complaint: Pain All Over Stated Complaint: ABNORMAL LABS Time Seen by Provider: 05/05/20 10:33 Primary Care Provider: VICKIE GRAHAM DO [Primary Care Provider] - Follow up as needed Mode of Arrival: Wheelchair TRAVEL OUTSIDE OF THE [place] IN LAST 30 DAYS: No - HPI Notes: Chief complaint: Worsening chronic pain entire back History of present illness: 79-year-old female followed at [facility] with long history of degenerative arthritis of her spine and generalized osteoarthritis currently taking Percocet for pain but reports that she is increasingly having breakthrough discomfort. She was seen by an orthopedist recently and there was discussion about possibly getting an MRI scan although this was never scheduled. Patient says there is no way which she would consider having surgery if a lesion were found on MRI. She is independently ambulatory and is not using a ca ne or walker. She lives alone. Primary care provider: Dr. Graham - Related Data Allergies/Adverse Reactions: aspirin [Aspirin] Adverse Reaction (Verified 01/28/19 12:03) Upset stomach, "it messes with my ulcer" Past Medical History - General Information source: Patient - Social History Smoking Status: Never Smoker Chew tobacco use (# tins/day): No Frequency of alcohol use: None Drug Abuse: None Family History: Reviewed & Not Pertinent - Past Medical History Cardiac Medical History: Reports: Hx Hypertension Denies: Hx Coronary Artery Disease, Hx Heart Attack Pulmonary Medical History: Reports: Hx Pneumonia Denies: Hx Asthma, Hx Bronchitis, Hx COPD Neurological Medical History: Denies: Hx Cerebrovascular Accident, Hx Seizures Endocrine Medical History: Reports: Hx Diabetes Mellitus Type 2 Renal/ Medical History: Denies: Hx Peritoneal Dialysis GI Medical History: Reports: Hx Gastroesophageal Reflux Disease, Hx Ulcer - Bleeding ulcers, Hx Colonoscopy, Hx Endoscopy. Denies: Hx Pancreatitis Musculoskeletal Medical History: Reports Hx Arthritis - "all over", "mostly in lower back" , Reports Hx Musculoskeletal Deformity, Reports Hx Musculoskeletal Trauma, Denies Hx Systemic Lupus Erythematosus Traumatic Medical History: Reports: Hx Fractures - Multiple fractures Past Surgical History: Reports: Hx Orthopedic Surgery - left wrist. Denies: Hx Hysterectomy - Immunizations Immunizations up to date: No Hx Diphtheria, Pertussis, Tetanus Vaccination: No Review of Systems - Review of Systems Notes: Constitutional: Negative for fever. HENT: Negative for sore throat. Eyes: Negative for visual changes. Cardiovascular: Negative for chest pain. Respiratory: Negative for shortness of breath. Gastrointestinal: Negative for abdominal pain, vomiting or diarrhea. Genitourinary: Negative for dysuria. Musculoskeletal: As per HPI. Skin: Negative for rash. Neurological: Negative for headaches, focal weakness or numbness. 10 point ROS negative except as marked above and in HPI. Physical Exam - Vital signs Vitals: Temp Pulse Resp BP Pulse Ox 98.0 F 73 20 148/53 H 99 05/05/20 09:55 05/05/20 09:55 05/05/20 09:55 05/05/20 09:55 05/05/20 09:55 - Notes Notes: GENERAL: Elderly female appearing in no acute distress. SKIN: Good turgor no rashes. HEAD: Normocephalic atraumatic. EYES: PERRLA. EOMI. Conjunctivae and sclerae clear. EARS: CANALS AND TMS CLEAR. NOSE: CLEAR. MOUTH: Moist mucosa. Good dentition. No stridor or edema. No drooling. NECK: Supple. No masses or thyromegaly. No adenopathy. Carotids 2+ without bruits. No JVD. BACK: Diffuse tenderness of thoracic and lumbar spine. CHEST: Respirations unlabored. Breath sounds clear and symmetrical. HEART: Regular rhythm. No murmur gallop or rub. ABDOMEN: Soft nontender without masses, organomegaly or rebound. Bowel sounds normally active. No bruits. GENITALIA: Deferred. EXTREMITIES: No edema. No calf tenderness. Cap refill less than 1.5 seconds. Dorsalis pedis and posterior tibial pulses 3+ and symmetrical. NEUROLOGICAL: GCS 15. Alert and oriented x3. Walks without assistance. Fluent speech. Cranial nerves II through XII intact. Sensorimotor and cerebellar normal. Normal tone. PSYCHIATRIC: Appropriate affect. Course - Re-evaluation Re-evalutation: I have advised patient of her radiographic findings here today. There is no evidence of any acute traumatic injury. She does, however, have very severe degenerative changes of her dorsal lumbar spine. She again reiterates that she really would not want to consider surgery at this point. I explained to her that her medical management is currently appropriate based on review of her present meds. Suggest that she speak further with her primary care physician, Dr. Graham, regarding possibility of incorporation of physical therapy into her current regimen. 05/05/20 14:15 - Vital Signs Vital signs: Temp Pulse Resp BP Pulse Ox 98.0 F 73 20 148/53 H 99 05/05/20 09:55 05/05/20 09:55 05/05/20 09:55 05/05/20 09:55 05/05/20 09:55 - Laboratory Result Diagrams: 05/05/20 11:00 05/05/20 11:00 Laboratory results interpreted by me: 05/05/20 05/05/20 11:00 11:00 RBC 3.62 L Hct 35.6 L MCV 98 H MCH 34.3 H RDW 14.5 H Sodium 135.8 L - Diagnostic Test Radiology reviewed: Reports reviewed - Chest x-ray per radiologist: Old rib fractures. Otherwise unremarkable. Noncontrast CT abdomen pelvis per radiologist: Advanced degenerative changes dorsal and lumbar spine with multilev el spondylolisthesis. Discharge - Discharge Clinical Impression: Degenerative arthritis of spine Qualifiers: Spinal region: thoracolumbar Spinal osteoarthritis complication: other spinal osteoarthritis Qualified Code(s): M47.895 - Other spondylosis, thoracolumbar region Disposition: HOME, SELF-CARE Additional Instructions: Continue current medications. Follow-up with Dr. Graham within the next 1 week and discuss possible benefit of physical therapy. Referrals: VICKIE GRAHAM DO [Primary Care Provider] - Follow up as needed
[2020-05-05 13:31] LABS: APPEARANCE,URINE CLEAR; BILIRUBIN,URINE NEGATIVE (NEGATIVE); COLOR,URINE YELLOW; GLUCOSE, URINE NEGATIVE (NEGATIVE); KETONES,URINE NEGATIVE (NEGATIVE); LEUKOCYTE ESTERASE,URINE NEGATIVE (NEGATIVE); NITRITE,URINE NEGATIVE (NEGATIVE); PROTEIN,URINE NEGATIVE (NEGATIVE); URINE SPECIFIC GRAVITY 1.014; UROBILINOGEN,URINE NEGATIVE mg/dL (<2.0)
--- NOTE | 2020-05-05 13:44 | RADIOLOGY REPORT (SQ) ---
EXAM DESCRIPTION: CHEST 2 VIEWS IMAGES COMPLETED DATE/TIME: 05/05/2020 1:30 pm REASON FOR STUDY: back pain COMPARISON: PA and lateral views of the chest from 03/27/2016. EXAM PARAMETERS: NUMBER OF VIEWS: Two views. TECHNIQUE: PA and lateral views of the chest were obtained. RADIATION DOSE: NA LIMITATIONS: None. FINDINGS: LUNGS AND PLEURA: No consolidation, pleural effusion or pneumothorax. MEDIASTINUM AND HILAR STRUCTURES: No mediastinal or hilar contour abnormality. HEART AND VASCULAR STRUCTURES: The cardiac silhouette and pulmonary vasculature are within normal giraldo its. BONES: Chronic fracture of the right posterolateral 6th rib. HARDWARE: None in the chest. OTHER: No other finding. IMPRESSION: No acute cardiopulmonary process. TECHNICAL DOCUMENTATION: JOB ID: [id number] [address] [employer]- All Rights Reserved Reading location - IP/workstation name: [email or web address]
--- NOTE | 2020-05-05 13:53 | RADIOLOGY REPORT (SQ) ---
EXAM DESCRIPTION: CT ABD/PELVIS NO ORAL OR IV IMAGES COMPLETED DATE/TIME: 05/05/2020 1:35 pm REASON FOR STUDY: low back pain COMPARISON: CT of the abdomen and pelvis from 02/24/2018. TECHNIQUE: CT scan of the abdomen and pelvis performed without intravenous or oral contrast. Images reviewed with lung, soft tissue, and bone windows. Reconstructed coronal and sagittal MPR images revi ewed. All images stored on PACS. All CT scanners at this facility use dose modulation, iterative reconstruction, and/or weight based d osing when appropriate to reduce radiation dose to as low as reasonably achievable (ALARA). [facility]: Dose Right [facility]: CareDose [facility]: Dose Right [facility]: Teradose 4D [facility]: [employer] RADIATION DOSE: CT Rad equipment meets quality standard of care and radiation dose reduction techniq ues were employed. CTDIvol: 8.4 mGy. DLP: 435 mGy-cm. LIMITATIONS: None. FINDINGS: LOWER CHEST: No acute findings. NON-CONTRASTED LIVER, SPLEEN, ADRENALS: Evaluation is limited due to the absence of intravenous contr ast. There is no evidence hepatic steatosis. The spleen is normal in size. There is a lipid rich a denoma in the left adrenal gland that measures 2.2 x 2 cm. There is no right adrenal mass. PANCREAS: No acute gross abnormality of the pancreas. GALLBLADDER: No abnormality that is apparent on CT. RIGHT KIDNEY AND URETER: Evaluation is limited due to the absence of intravenous contrast. There is no hydronephrosis, nephrolithiasis, hydroureter or ureterolithiasis. LEFT KIDNEY AND URETER: Evaluation is limited due to the absence of intravenous contrast. There is n o hydronephrosis, nephrolithiasis, hydroureter or ureterolithiasis. AORTA AND RETROPERITONEUM: No aneurysm of the abdominal aorta. No retroperitoneal adenopathy, hemorr rusty or mass. BOWEL AND PERITONEAL CAVITY: Colonic diverticulosis without diverticulitis. There is no bowel obstru ction, bowel wall thickening or pericolonic/ perienteric inflammation. There is no mesenteric adenop athy, free intraperitoneal fluid or mesenteric/ omental inflammation. APPENDIX: Normal. PELVIS, BLADDER, AND ABDOMINAL WALL:The dense calcifications posterior to the uterus could represent a fibroid. There is no abnormality of the adnexa that is apparent on CT. The urinary bladder is con tracted. The ovoid fat attenuation subcutaneous structure with a thin high attenuation rim in the le ft lower quadrant (image 63 of series 3) is unchanged. 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 There is no acute fracture. OTHER: No other finding. IMPRESSION: No acute intra-abdominal abnormality. COMMENT: Quality ID # [id number]: Final reports with documentation of one or more dose reduction techniques (e.g., Automated exposure control, adjustment of the mA and/or kV according to patient size, use of iterative reconstruction technique) TECHNICAL DOCUMENTATION: JOB ID: [id number] 2010 [employer]- All Rights Reserved Reading location - IP/workstation name: [email or web address]
[2020-05-05 14:27] VITALS: BP 148/64
== END 2020-05-05 14:31 | disposition home or self-care (01) ==
LOC: ER 09:41
DX: M47.895 Other spondylosis, thoracolumbar region (principal); M54.9 Dorsalgia, unspecified; G89.29 Other chronic pain; Z88.8 Allergy status to other drugs, medicaments and biological substances; I10 Essential (primary) hypertension; E11.9 Type 2 diabetes mellitus without complications
CPT/HCPCS: 36415; 71046; 74176; 80053; 81001; 82550; 85025; 99285